=== PATIENT | female | born 1975 | race Caucasian/White ===

== ENCOUNTER 2021-01-06 06:36 | Inpatient (IN) | payer BC ==
[2021-01-06] MEDS ORDERED: cefOXitin 2 GM Vial ONE (06:39)
[2021-01-06] MEDS ORDERED: Dexamethasone 4 MG/ML SDV ONE (06:54)
[2021-01-06] MEDS ORDERED: Rocuronium 50 MG/5 ML Vial ONE (06:54)
[2021-01-06] MEDS ORDERED: Propofol 200 MG/20 ML SDV ONE (06:54)
[2021-01-06] MEDS ORDERED: Glycopyrrolate 0.2 MG/ML 5 ML MDV ONE (06:54)
[2021-01-06] MEDS ORDERED: Succinylcholine 200 MG/10 ML MDV ONE (06:54)
[2021-01-06] MEDS ORDERED: Neostigmine Methylsulfate 1 MG/ML 5 ML Syringe ONE (06:54)
[2021-01-06] MEDS ORDERED: fentaNYL 250 MCG/5 ML SDV ONE ×2 (06:54→08:05)
[2021-01-06] MEDS ORDERED: Ondansetron 4 MG/2 ML SDV ONE (06:54)
[2021-01-06] MEDS ORDERED: Celecoxib 200 MG Cap PO ONE (06:56)
[2021-01-06] MEDS ORDERED: Acetaminophen 500 MG Tab PO ONE (06:56)
[2021-01-06] MEDS ORDERED: Scopolamine 1.5 MG Transdermal Patch TOP SCH (07:00)
[2021-01-06] MEDS ORDERED: Dextrose 5%-Lactated Ringers 1,000 ML IV SCH ×2 (07:30→12:15)
[2021-01-06] MEDS ORDERED: Magnesium Sulfate 4.3 GM in Sodium Chloride 0.9% 250 ML IV ONE (07:45)
[2021-01-06] MEDS ORDERED: Ketamine 500 MG/5 ML MDV IV SCH (07:45)
[2021-01-06] MEDS ORDERED: Ketamine 19 MG in Sodium Chloride 0.9% 19.81 ML IV SCH (07:45)
[2021-01-06] MEDS ORDERED: cefOXitin 2 GM in Sodium Chloride 0.9% 50 ML IV ONE (08:00)
[2021-01-06] MEDS ORDERED: Lactated Ringers 1,000 ML ONE (08:25)
[2021-01-06] MEDS ORDERED: diphenhydrAMINE 50 MG/ML SDV ONE (08:25)
[2021-01-06] MEDS ORDERED: fentaNYL 100 MCG/2 ML SDV ONE (08:47)
[2021-01-06] MEDS ORDERED: hydrOXYzine HCL 100 MG/2 ML SDV IM ONE (10:09)
[2021-01-06] MEDS ORDERED: Cyclobenzaprine 10 MG Tab PO PRN (11:46)
[2021-01-06] MEDS ORDERED: Labetalol 20 MG/4 ML Syringe IVPUSH PRN (12:00)
[2021-01-06] MEDS ORDERED: Acetaminophen 500 MG Tab PO PRN (12:00)
[2021-01-06] MEDS ORDERED: HYDROmorphone 1 MG/ML Syringe IV PRN (12:00)
[2021-01-06] MEDS ORDERED: diphenhydrAMINE 50 MG/ML SDV IVPUSH PRN (12:00)
[2021-01-06] MEDS ORDERED: Calcium Gluconate 10% 1 GM/10 ML SDV IVPUSH PRN (12:00)
[2021-01-06] MEDS ORDERED: Metoclopramide 10 MG/2 ML SDV IVPUSH PRN (12:00)
[2021-01-06] MEDS ORDERED: HYDROmorphone 0.5 MG/0.5 ML Syringe IVPUSH PRN (12:00)
[2021-01-06] MEDS ORDERED: Ondansetron 4 MG/2 ML SDV IVPUSH PRN (12:00)
[2021-01-06] MEDS ORDERED: Fluticasone Propionate Nasal Spray 16 GM Bottle NAS PRN (12:18)
[2021-01-06] MEDS: traMADol 50 MG Tab PO PRN ×2 (13:01→19:04)
[2021-01-06] MEDS ORDERED: Pantoprazole 40 MG Vial IVPUSH SCH (14:00)
[2021-01-06] MEDS: cefOXitin 2 GM in Sodium Chloride 0.9% 50 ML IV SCH ×2 (14:28→20:36)
[2021-01-06] MEDS: Acetaminophen 500 MG Tab PO SCH ×2 (14:38→21:37)
[2021-01-06] MEDS ORDERED: MVI, Adult with Vitamin K 10 ML, Thiamine 200 MG, Zinc/Copper/Manganese/Selenium 1 ML i... IV SCH ×4 (16:00)
[2021-01-06] MEDS: Heparin Sodium 5,000 Units/ML Vial SUBCUT SCH (17:20)
[2021-01-06] MEDS: Dextrose 5%-Lactated Ringers 1,000 ML IV SCH (20:37)
[2021-01-06] MEDS: Azelastine Nasal Soln 30 ML Spray Bottle NAS SCH (21:35)
[2021-01-07] MEDS: cefOXitin 2 GM in Sodium Chloride 0.9% 50 ML IV SCH ×3 (01:52→13:18)
[2021-01-07] MEDS: Dextrose 5%-Lactated Ringers 1,000 ML IV SCH (03:10)
[2021-01-07] MEDS ORDERED: Iopamidol 612 MG/ML 50 ML SDV PO STA (03:27)
[2021-01-07] MEDS: Heparin Sodium 5,000 Units/ML Vial SUBCUT SCH ×2 (05:34→19:06)
[2021-01-07] MEDS: Acetaminophen 500 MG Tab PO SCH (05:34)
[2021-01-07] MEDS ORDERED: Dextrose 5%-Lactated Ringers 1,000 ML IV SCH (08:45)
[2021-01-07] MEDS: traMADol 50 MG Tab PO PRN ×2 (08:46→19:20)
[2021-01-07] MEDS: Azelastine Nasal Soln 30 ML Spray Bottle NAS SCH ×2 (08:48→21:23)
[2021-01-07] MEDS: Celecoxib 200 MG Cap PO SCH ×2 (08:48→21:22)
[2021-01-07] MEDS: SCOPOLAMINE PATCH CHECK TOP SCH (08:50)
[2021-01-07] MEDS: Acetaminophen Soln 650 MG/20.3 ML UD Cup PO SCH ×2 (13:10→21:22)
[2021-01-07] MEDS ORDERED: MVI, Adult with Vitamin K 10 ML, Thiamine 200 MG, Zinc/Copper/Manganese/Selenium 1 ML i... IV SCH ×4 (16:00)
[2021-01-07] MEDS: Pantoprazole 40 MG Delayed-Release Granules 1 Packet PO SCH (16:40)
--- NOTE | 2021-01-07 22:40 | PN ---
DATE OF SERVICE: 01/07/2021 The patient has been afebrile with stable vital signs. No major problems were noted overnight. Oral intake has been fairly good and upper GI x-ray looks good. Pain control has been good with Tylenol and Celebrex. Requiring 1 dose of Ultram on day shift yesterday but none thereafter. She does not like the taste of the Tylenol. We will try liquid Tylenol today. Otherwise, we will go up to a step-2 diet. Maximize activity. Work with pulmonary toilet. She may be ready for discharge home tomorrow. Tera Johnson MD Job #: [id number]
[2021-01-08] MEDS: traMADol 50 MG Tab PO PRN (03:11)
[2021-01-08] MEDS: hydrOXYzine HCL 100 MG/2 ML SDV IM PRN ×2 (03:53→08:28)
[2021-01-08] MEDS: Acetaminophen Soln 650 MG/20.3 ML UD Cup PO SCH ×3 (06:09→22:50)
[2021-01-08] MEDS: Heparin Sodium 5,000 Units/ML Vial SUBCUT SCH ×2 (06:09→18:24)
[2021-01-08] MEDS: Celecoxib 200 MG Cap PO SCH ×2 (08:28→22:50)
[2021-01-08] MEDS ORDERED: Cyanocobalamin (Vitamin B12) 1,000 MCG/ML SDV IM ONE (09:00)
[2021-01-08] MEDS: Azelastine Nasal Soln 30 ML Spray Bottle NAS SCH ×2 (10:30→22:50)
[2021-01-08] MEDS: SCOPOLAMINE PATCH CHECK TOP SCH (10:30)
--- NOTE | 2021-01-08 10:37 | OR ---
DATE OF PROCEDURE: 01/06/2021 SURGEON: Tera Johnson MD PREOPERATIVE DIAGNOSIS: Morbid obesity. POSTOPERATIVE DIAGNOSES: 1. Morbid obesity. 2. Marked hepatomegaly. 3. Paraesophageal diaphragmatic hernia. PROCEDURES PERFORMED: 1. Laparoscopic Lizeth-en-Y gastric bypass with long limb gastroenterostomy (91049). 2. Adriano-Cut needle liver biopsy (32153). 3. Repair of paraesophageal diaphragmatic hernia (96831). ANESTHESIA: General. CUSTOMS HOUSE BROKER: Dixie Landa PA-C INDICATIONS FOR PROCEDURE: This is a 45-year-old female presenting with longstanding morbid obesity and increasingly significant comorbidities. After preoperative evaluation and discussion, she wished to proceed with a gastric bypass procedure. Potential risks of the procedure including bleeding, infection, leaks from various GI tract closures, problems with bowel obstruction over time, as well as the possibility of cardiopulmonary, septic, or hemorrhagic complications leading to were discussed, and the patient wishes to proceed. DESCRIPTION OF PROCEDURE: The patient was taken to the operating room. After general endotracheal anesthesia was induced, she was placed in a lithotomy position and the abdomen prepped and draped. 15 cm inferior and 5 cm left of the xiphoid process, a transverse incision was made and the peritoneal cavity entered under direct vision with an Optiview trocar and inflated to 15 mmHg pressure with CO2. Laparoscope was then reinserted. No underlying trocar insertion site injuries were seen. Following this, 5 additional trocars were placed across the upper mid abdomen. Bilateral transversus abdominis plane blocks were placed. The liver was noted to be markedly enlarged and fatty infiltrated. Adriano-Cut needle biopsy obtained from the left lobe of the liver. Minimal bleeding from the biopsy site was controlled with electrocautery. At this point, the omentum was divided in the midline up to the level of the transverse colon. This allowed identification of the small bowel to the ligament of Treitz. The small bowel was then traced out 125 cm distal to that point and was divided transversely with a FLORINA stapler. The small bowel was then traced out an additional 150 cm where the side-to- side enteroenterostomy was accomplished with internal firing of the Endo-FLORINA 60 mm stapler. Common opening was then closed transversely with the same stapler and angles anastomosed and mesenteric defect approximated with some 0 Vicryl stitch reinforced with fibrin sealant. The Lizeth limb at that point had been brought up through an antecolic approach up to the level of the gastroesophageal junction without tension. With the liver being retracted anteriorly, the patient was noted to have moderate paraesophageal diaphragmatic hernia with prolapse of some perigastric fat and gastric fundus. After this was reduced, the peritoneum overlying it was incised and reflected downward and the diaphragmatic hernia repaired with 0 Ethibond sutures reinforced with PTFE pledgets. At this point, the gastrointestinal catheter was inflated to 15 mL and pulled up snugly against the EG junction. Gastric wall over the apex of the balloon was then marked with electrocautery and balloon catheter deflated and pulled up into the esophagus. The lesser omental tissue adjacent to the gastric cardia was then incised, allowing dissection behind the stomach at that level. Pouch formation was initiated with transverse firing of the FLORINA stapler at the cauterized af[place] of the gastric cardia and then completed with 2 additional firings of the FLORINA stapler up to and through the angle of His. Upon completion of the pouch, both staple lines appeared to be intact. The anvil of a 25 mm EEA stapler was attached to a Alcorn sump type tube. The latter was brought down through the mouth and taken out through a small opening in the gastric pouch, allowing the anvil likewise to be pulled down to within the gastric pouch. The divided end of the Lizeth limb was then opened and the main body of the EEA stapler was passed several centimeters into the lumen of the small bowel, brought up the anvil, and united with it, thus creating the gastrojejunostomy. Upon removal of the stapler, double donuts of mucosa were noted within it. The small bowel was closed off with a vascular staple line. Gastrojejunostomy was reinforced with some 3-0 Vicryl seromuscular stitch along with fibrin sealant. An omental patch over the left lateral and inferior aspects was then placed with a 3-0 Vicryl stitch. A leak test was accomplished with injection of 120 mL of air in the gastric pouch while it was submerged with cefoxitin-containing saline solution. No leaks were identified. A single Festus-Herrera drain was taken out through the left lateral trocar site and positioned adjacent to the gastrojejunostomy, and from there, up into the splenic fossa. At that point, no further problems were noted. The trocars were removed and the peritoneal cavity deflated. The incisions were closed with 4-0 Vicryl skin stitch and the drain affixed with 4-0 Vicryl stitch as well, and the patient was taken to the recovery room in satisfactory condition. Physician process assistant, Dixie Landa, played an essential role in assisting in this case, helping to position the patient, retract structures as needed, as well as suturing and cutting sutures when indicated. Her presence improved the patient's safety and decreased the operative time. Tera Johnson MD Job #: [id number]
--- NOTE | 2021-01-08 12:13 | DISCH ---
FINAL DIAGNOSES: 1. Morbid obesity. 2. Marked hepatomegaly. 3. Paraesophageal diaphragmatic hernia. SECONDARY DIAGNOSES: 1. History of alopecia. 2. History of pelvic inflammatory disease. 3. Status post hysterectomy. 4. Status post laparoscopic cholecystectomy. 5. Status post appendectomy. OPERATIVE PROCEDURES: On 01/06, diagnostic laparoscopy with: 1. Laparoscopic Lizeth-en-Y gastric bypass with long limb gastroenterostomy. 2. Adriano-Cut needle liver biopsy. 3. Repair of paraesophageal diaphragmatic hernia. SUMMARY: This is a 45-year-old female presenting with longstanding morbid obesity and increasingly significant comorbidities. After preoperative evaluation and discussion, she wished to proceed with a gastric bypass procedure. This was done along with liver biopsy and repair of diaphragmatic hernia at the time of the procedure. Postoperatively, she has had no major problems. She was noted to have some discomfort at the PEDRO PABLO drain site, which I think we will remove later this morning. The plan would be to do discharge home with followup with Dixie Landa on 01/16/2021. MEDICATIONS ON DISCHARGE: Will include her usual medications other than we will hold the omeprazole, and she will be given a recommendation for Tylenol 1 g q.6 hours p.r.n. and prescription for Ultram 50 mg q.6 hours p.r.n. pain, #18. Job #: [id number]
[2021-01-08] MEDS: Pantoprazole 40 MG Delayed-Release Granules 1 Packet PO SCH (18:23)
[2021-01-09] MEDS: traMADol 50 MG Tab PO PRN (02:18)
[2021-01-09] MEDS: Acetaminophen Soln 650 MG/20.3 ML UD Cup PO SCH (05:51)
[2021-01-09] MEDS: Heparin Sodium 5,000 Units/ML Vial SUBCUT SCH (05:51)
[2021-01-09] MEDS: Celecoxib 200 MG Cap PO SCH (09:05)
[2021-01-09] MEDS: Azelastine Nasal Soln 30 ML Spray Bottle NAS SCH (09:05)
--- NOTE | 2021-01-09 09:19 | CR ---
UGI Limited HISTORY: Postbariatric surgery FINDINGS: Patient swallowed water-soluble contrast. Upright views of the abdomen show no evidence of extravasation or obstruction. There is a surgical drain in the left upper quadrant. IMPRESSION: Status post bariatric surgery No extravasation or obstruction seen
--- NOTE | 2021-01-09 10:13 | CR ---
CHEST: 2 view CLINICAL HISTORY:Hypoxia, fever COMPARISON:None FINDINGS: Patient has diffuse bilateral pulmonary infiltrates. There may be a small left effusion. Heart size and pulmonary vascularity are normal Impression: Moderate bilateral predominantly lower lobe pneumonic infiltrates.
--- NOTE | 2021-01-09 14:04 | DISCH ---
ADDENDUM: Talya Mckay is 45-year-old female who was discharged to home yesterday morning, but developed a temperature of 100.7. She was treated with some Tylenol, and her oximetry, the lowest it got was 77% on 01/08/2021 at 2015. She remained afebrile since that time and vital signs did remain stable. O2 by pulse oximetry was 94% and 89% on 2 L. She was stable to be discharged to home today. Oral intake 1020. Urine output 1800. Pain managed by Ultram. REVIEW OF SYSTEMS: Remainder of review of systems negative for any pertinent positives and negatives. OBJECTIVE: GENERAL: Talya Mckay is a pleasant 45-year-old female. VITAL SIGNS: Height is 5 feet 8 inches, weight is 287 pounds, BMI 43.6. TPR 97.2, 98, 16, blood pressure 118/73. HEENT: Negative. NECK: Supple. HEART: Regular rate and rhythm. LUNGS: Revealed decreased breath sounds on respirations, but when asked to take a more conscious deep breath, her lungs have good air exchange in bases. She has been using her incentive spirometer and encouraged to continue using that. ABDOMEN: Negative. Sutures intact. Abdominal binder is on. Incisions are healing well. See discharge summary written on 01/08/2021. /[id number]
== END 2021-01-09 10:50 | disposition home or self-care (01) | DRG 403 ==
LOC: JP.SDS 06:36 → JP.SDSSCHI 08:32 → EDSTATUS 09:15 → JP.ICU 11:33 → JP.MS 01-07 20:16
PROVIDERS: ADMIT Surgery; ATTEND Surgery
PROC: 0D164ZA Bypass Stomach to Jejunum, Percutaneous Endoscopic Approach (ICD-10-PCS; principal; 2021-01-06)
PROC: 0FB24ZX Excision of Left Lobe Liver, Percutaneous Endoscopic Approach, Diagnostic (ICD-10-PCS; 2021-01-06)
PROC: 0BQT4ZZ Repair Diaphragm, Percutaneous Endoscopic Approach (ICD-10-PCS; 2021-01-06)
DX: E66.01 Morbid (severe) obesity due to excess calories (principal); R16.0 Hepatomegaly, not elsewhere classified; K44.9 Diaphragmatic hernia without obstruction or gangrene; Z90.710 Acquired absence of both cervix and uterus; Z90.49 Acquired absence of other specified parts of digestive tract; Z79.899 Other long term (current) drug therapy; Z68.41 Body mass index [BMI] 40.0-44.9, adult
CPT/HCPCS: 36415; 71046; 71046-26; 74240; 74240-26; 83036; 83735; 86850; 86900; 86901; 94762; A9270-GY; C9113; J0171; J0330; J0694; J1100; J1200; J1644; J2405; J2704; J2710; J2795; J3010; J3410; J3411; J3420; J3475; J3490; J7030; J7050; J7120; J7121

== ENCOUNTER 2021-01-11 10:32 | Inpatient (IN) | payer BC ==
[2021-01-11 12:30] LABS: CORONAVIRUS COVID-19 NAA POSITIVE (NEGATIVE)
[2021-01-11] MEDS ORDERED: REMDESIVIR 200 MG in Sodium Chloride 0.9% 250 ML IV ONE (12:45)
[2021-01-11] MEDS ORDERED: Acetaminophen 325 MG Tab PO PRN ×2 (12:45→16:00)
[2021-01-11] MEDS ORDERED: Dexamethasone 4 MG/ML SDV IVPUSH SCH (12:45)
[2021-01-11] MEDS ORDERED: Benzonatate 100 MG Cap PO ONE (12:46)
[2021-01-11] MEDS ORDERED: Enoxaparin 40 MG/0.4 ML Syringe SUBCUT ONE (12:52)
--- NOTE | 2021-01-11 12:56 | EDM.PDOC ---
ED HPI GENERAL MEDICAL PROBLEM - General Chief Complaint: Respiratory Problem Stated Complaint: COUGH,NAUSEA,SOB/RNY LAST VERNA Time Seen by Provider: 01/11/21 12:32 Source of Information: Reports: Patient, RN Notes Reviewed History Limitations: Reports: No Limitations - History of Present Illness INITIAL COMMENTS - FREE TEXT/NARRATIVE: 45-year-old female presents the emergency department day complaint of increasing shortness of breath, she is postop day 6 from gastric bypass surgery she states about 3 days ago she started having difficulty breathing felt more short of carmita ath has had low-grade fevers at home. - Related Data Allergies Allergy/AdvReac Type Severity Reaction Status Date / Time penicillin G Allergy Unknown Hives Verified 01/11/21 11:40 fentanyl Allergy Hives Verified 01/11/21 11:40 oxycodone [From Percocet] Allergy Itching Verified 01/11/21 11:40 Home Meds: Home Meds Azelastine [Astelin Nasal Soln] 1 spray BENNY BID 01/04/21 [History] Fluticasone Propionate [Flonase] 1 - 2 spray BENNY DAILY PRN 01/04/21 [History] Calcium Carb, Citrate/Vit D3 [Citracal + D ER] 1 tab PO DAILY #0 01/08/21 [Rx] Celecoxib [CeleBREX] 1 cap PO BID #0 01/08/21 [Rx] Cyanocobalamin (Vitamin B-12) [Vitamin B-12] 1,000 mcg SL DAILY #0 01/08/21 [Rx] Doxycycline Hyclate 100 mg PO DAILY PRN #0 01/08/21 [Rx] Ferrous Fumarate/Vitamin C [Vitron-C] 1 tab PO DAILY #0 01/08/21 [Rx] Magnesium Hydroxide [Milk of Magnesia] 30 ml PO DAILY PRN #2 ml 01/08/21 [Rx] Multivitamin [Multi-Day Vitamins] 1 tab PO DAILY #0 01/08/21 [Rx] Vitamin B Complex [B Complex] 1 tab PO DAILY #0 01/08/21 [Rx] traMADol [Ultram] 50 mg PO Q6H PRN #18 tablet 01/08/21 [Rx] Acetaminophen [Tylenol] 1,000 mg PO Q6H PRN 01/11/21 [History] Past Medical History HEENT History: Reports: Allergic Rhinitis Gastrointestinal History: Reports: GERD, Hiatal Hernia HOUSEKEEPING ATTENDANT History: Reports: Polycystic Ovaries, Musculoskeletal History: Reports: Fracture, Other (See Below) Other Musculoskeletal History: fractured arm, ankle, wrist Endocrine/Metabolic History: Reports: Obesity/BMI 30+ Dermatologic History: Reports: Other (See Below) Other Dermatologic History: rosacea - Infectious Disease History Infectious Disease History: Reports: Chicken Pox, Measles, Mumps - Past Surgical History Head Surgeries/Procedures: Reports: None HEENT Surgical History: Reports: Adenoidectomy, Tonsillectomy GI Surgical History: Reports: Appendectomy, Bariatric Procedure, Cholecystectomy, EGD Female Surgical History: Reports: Hysterectomy Endocrine Surgical History: Reports: None Musculoskeletal Surgical History: Reports: None Dermatological Surgical History: Reports: None Social & Family History - Tobacco Use Tobacco Use Status *Q: Never Tobacco User Second Hand Smoke Exposure: No - Caffeine Use Caffeine Use: Reports: None, Soda - Recreational Drug Use Recreational Drug Use: No ED ROS GENERAL - Review of Systems Review Of Systems: See Below Constitutional: Reports: Fever, Weakness, Fatigue HEENT: Reports: No Symptoms Respiratory: Reports: Shortness of Breath, Cough Cardiovascular: Reports: Dyspnea on Exertion GI/Abdominal: Reports: No Symptoms ED EXAM, GENERAL - Physical Exam Exam: See Below Exam Limited By: No Limitations General Appearance: Alert, WD/WN, No Apparent Distress Respiratory/Chest: No Respiratory Distress, Lungs Clear, Normal Breath Sounds, No Accessory Muscle Use, Chest Non-Tender Cardiovascular: No Murmur, Tachycardia Course - Vital Signs Last Recorded V/S: Last Vital Signs Temp 98.2 F 01/11/21 11:42 Pulse 112 H 01/11/21 11:42 Resp 40 H 01/11/21 11:42 BP 117/81 01/11/21 11:42 Pulse Ox 92 L 01/11/21 11:42 - Orders/Labs/Meds Orders: Active Orders 24 hr Category Date Time Status Chest 1V Frontal [CR] Stat Exams 01/11/21 12:46 Ordered HEPATIC FUNCTION PANEL,HFP [CHEM] DAILY Lab 01/12/21 13:00 Ordered HEPATIC FUNCTION PANEL,HFP [CHEM] DAILY Lab 01/13/21 13:00 Ordered HEPATIC FUNCTION PANEL,HFP [CHEM] DAILY Lab 01/14/21 13:00 Ordered HEPATIC FUNCTION PANEL,HFP [CHEM] DAILY Lab 01/15/21 13:00 Ordered PROCALCITONIN [CHEM] Stat Lab 01/11/21 13:10 Received Acetaminophen [TylenoL] Med 01/11/21 12:45 Active 650 mg PO Q4H PRN dexAMETHasone [Decadron] Med 01/11/21 12:45 Active 6 mg IVPUSH DAILY Isolation [COMM] Stat Oth 01/11/21 12:45 Ordered Medication Orders Acetaminophen (Acetaminophen 325 Mg Tab) 650 mg PO Q4H PRN PRN Reason: Fever Greater Than 101 Last Admin: 01/11/21 13:53 Dose: 650 mg Documented by: JOSTIN Dexamethasone (Dexamethasone 4 Mg/Ml Sdv) 6 mg IVPUSH DAILY OMAYRA Stop: 01/20/21 09:01 Last Admin: 01/11/21 13:58 Dose: 6 mg Documented by: JOSTIN Labs: Laboratory Tests 01/11/21 01/11/21 01/11/21 Range/Units 11:36 12:45 13:10 WBC 5.1 (4.5-11.0) K/uL RBC 4.85 (3.30-5.50) M/uL Hgb 13.7 (12.0-15.0) g/dL Hct 41.6 (36.0-48.0) % MCV 86 (80-98) fL MCH 28 (27-31) pg MCHC 33 (32-36) % Plt Count 230 (150-400) K/uL Neut % (Auto) 77.1 H (36-66) % Lymph % (Auto) 18.9 L (24-44) % Citrus % (Auto) 3.4 (2-6) % Eos % (Auto) 0.0 L (2-4) % Baso % (Auto) 0.6 (0-1) % D-Dimer, Quantitative (0.0-500.0) ng/mL Sodium (140-148) mmol/L Potassium (3.6-5.2) mmol/L Chloride (100-108) mmol/L Carbon Dioxide (21-32) mmol/L Anion Gap (5.0-14.0) mmol/L BUN (7-18) mg/dL Creatinine (0.6-1.0) mg/dL Est Cr Clr Drug Dosing mL/min Estimated GFR (MDRD) (>60) Glucose (74-106) mg/dL Lactic Acid 1.6 (0.4-2.0) mmol/L Calcium (8.5-10.1) mg/dL Total Bilirubin (0.2-1.0) mg/dL Direct Bilirubin (0.0-0.2) mg/dL Indirect Bilirubin AST (15-37) U/L ALT (12-78) U/L Alkaline Phosphatase (46-116) U/L C-Reactive Protein (0.0-0.3) mg/dL Total Protein (6.4-8.2) g/dL Albumin (3.4-5.0) g/dL Globulin (2.3-3.5) g/dL Albumin/Globulin Ratio (1.2-2.2) Influenza Type A RNA Negative (NEGATIVE) RSV RNA (INAAT) Negative (NEGATIVE) Influenza Type B RNA Negative (NEGATIVE) SARS-CoV-2 RNA (JONAH) Positive H (NEGATIVE) 01/11/21 01/11/21 Range/Units 13:10 13:10 WBC (4.5-11.0) K/uL RBC (3.30-5.50) M/uL Hgb (12.0-15.0) g/dL Hct (36.0-48.0) % MCV (80-98) fL MCH (27-31) pg MCHC (32-36) % Plt Count (150-400) K/uL Neut % (Auto) (36-66) % Lymph % (Auto) (24-44) % Citrus % (Auto) (2-6) % Eos % (Auto) (2-4) % Baso % (Auto) (0-1) % D-Dimer, Quantitative 1767.43 H (0.0-500.0) ng/mL Sodium 134 L (140-148) mmol/L Potassium 4.0 (3.6-5.2) mmol/L Chloride 97 L (100-108) mmol/L Carbon Dioxide 26 (21-32) mmol/L Anion Gap 15.0 H (5.0-14.0) mmol/L BUN 9 (7-18) mg/dL Creatinine 0.8 (0.6-1.0) mg/dL Est Cr Clr Drug Dosing 91.47 mL/min Estimated GFR (MDRD) > 60 (>60) Glucose 94 (74-106) mg/dL Lactic Acid (0.4-2.0) mmol/L Calcium 8.2 L (8.5-10.1) mg/dL Total Bilirubin 0.3 (0.2-1.0) mg/dL Direct Bilirubin 0.16 (0.0-0.2) mg/dL Indirect Bilirubin 0.14 AST 63 H (15-37) U/L ALT 41 (12-78) U/L Alkaline Phosphatase 107 (46-116) U/L C-Reactive Protein 27.88 H (0.0-0.3) mg/dL Total Protein 6.7 (6.4-8.2) g/dL Albumin 2.6 L (3.4-5.0) g/dL Globulin 4.1 H (2.3-3.5) g/dL Albumin/Globulin Ratio 0.6 L (1.2-2.2) Influenza Type A RNA (NEGATIVE) RSV RNA (INAAT) (NEGATIVE) Influenza Type B RNA (NEGATIVE) SARS-CoV-2 RNA (JONAH) (NEGATIVE) Meds: Medications Generic Name Dose Route Start Last Admin Trade Name Freq PRN Reason Stop Dose Admin Acetaminophen 650 mg 01/11/21 12:45 01/11/21 13:53 Acetaminophen 325 Mg Tab PO 650 mg Q4H PRN Administration Fever Greater Than 101 Dexamethasone 6 mg 01/11/21 12:45 01/11/21 13:58 Dexamethasone 4 Mg/Ml Sdv IVPUSH 01/20/21 09:01 6 mg DAILY OMAYRA Administration Discontinued Medications Generic Name Dose Route Start Last Admin Trade Name Freq PRN Reason Stop Dose Admin Benzonatate 200 mg 01/11/21 12:46 01/11/21 13:53 Benzonatate 100 Mg Cap PO 01/11/21 12:47 200 mg ONETIME ONE Administration Enoxaparin Sodium 40 mg 01/11/21 12:52 01/11/21 14:32 Enoxaparin 40 Mg/0.4 Ml Syringe SUBCUT 01/11/21 12:53 40 mg ONETIME ONE Administration Remdesivir 200 mg/ Sodium 250 mls @ 250 mls/hr 01/11/21 12:45 01/11/21 14:29 Chloride IV 01/11/21 12:46 250 mls/hr ONETIME ONE Administration Departure - Departure Time of Disposition: 14:36 Disposition: Admitted As Inpatient 68 Condition: Fair Clinical Impression: COVID-19, COVID-19 - Discharge Information Referrals: Tera Johnson MD [Primary Care Provider] - Forms: ED Department Discharge Sepsis Event Note (ED) - Evaluation Sepsis Screening Result: Possible Sepsis Risk - Focused Exam Vital Signs: Vital Signs Temp Pulse Resp BP Pulse Ox 01/11/21 11:42 98.2 F 112 H 40 H 117/81 92 L 01/11/21 11:36 92 L 01/11/21 11:34 98.2 F 112 H 40 H 117/81 80 L - My Orders Last 24 Hours: My Active Orders 01/11/21 12:45 Acetaminophen [TylenoL] 650 mg PO Q4H PRN dexAMETHasone [Decadron] 6 mg IVPUSH DAILY Isolation [COMM] Stat 01/11/21 12:46 Chest 1V Frontal [CR] Stat 01/11/21 13:10 PROCALCITONIN [CHEM] Stat 01/12/21 13:00 HEPATIC FUNCTION PANEL,HFP [CHEM] DAILY 01/13/21 13:00 HEPATIC FUNCTION PANEL,HFP [CHEM] DAILY 01/14/21 13:00 HEPATIC FUNCTION PANEL,HFP [CHEM] DAILY 01/15/21 13:00 HEPATIC FUNCTION PANEL,HFP [CHEM] DAILY - Assessment/Plan Last 24 Hours: My Active Orders 01/11/21 12:45 Acetaminophen [TylenoL] 650 mg PO Q4H PRN dexAMETHasone [Decadron] 6 mg IVPUSH DAILY Isolation [COMM] Stat 01/11/21 12:46 Chest 1V Frontal [CR] Stat 01/11/21 13:10 PROCALCITONIN [CHEM] Stat 01/12/21 13:00 HEPATIC FUNCTION PANEL,HFP [CHEM] DAILY 01/13/21 13:00 HEPATIC FUNCTION PANEL,HFP [CHEM] DAILY 01/14/21 13:00 HEPATIC FUNCTION PANEL,HFP [CHEM] DAILY 01/15/21 13:00 HEPATIC FUNCTION PANEL,HFP [CHEM] DAILY Plan: Assessment Acuity = acute Site and laterality = viral syndrome complicated patient who is postop day 6 Etiology = COVID-19 Manifestations = hypoxic Location of injury = Home Lab values = CBC unremarkable D-dimer elevated 1767 of unclear significance lactic acid normal 1.6 AST elevated 63 CRP elevated 27.8 Covid was positive influenza AMB negative RSV negative chest x-ray pending procalcitonin pending Plan Call discussed case hospitalist on-call at 1430 currently agreed to come evaluate the patient emergency department for admission, Lovenox, Ribavarin dexamethasone initiated in the emergency department This note was dictated using [employer] voice recognition software please call with any questions on syntax or grammar.
--- NOTE | 2021-01-11 15:15 | PCM.HP.2 ---
H&P History of Present Illness - General Date of Service: 01/11/21 Admit Problem/Dx: Admission Diagnosis/Problem Admission Diagnosis/Problem Pneumonia Source of Information: Patient, Provider History Limitations: Reports: No Limitations - History of Present Illness Initial Comments - Free Text/Narative: CC: I was so short of breath HPI: Talya presented to the emergency room today with progressive dyspnea. She reports having gastric bypass surgery on Saturday, 5 days ago. She had mild hypoxia noted during the hospital stay and mild dyspnea but felt decent at the time of discharge 2 days ago. Since that time she has developed sinus congestion, cough which is dry as well as progressive dyspnea. She was quite short of breath today prompting her to come to the emergency room for evaluation. She is not aware of any fevers or chills. No loss of taste or smell. No nausea or diarrhea. Her abdominal pain from surgery has been fairly well controlled. She is not aware of any definite sick contacts. Nobody else at home is sick. She is feeling better now that she has been started on supplemental oxygen. Work-up in the emergency room revealed elevated D-dimer, significantly elevated CRP as well as Covid positive. She has hypoxic and requiring supplemental ox ygen. She has received dexamethasone, remdesivir and enoxaparin. She will be admitted for further management. Generalized Pain Score (Numeric/FACES): 0 - Related Data Allergies/Adverse Reactions: Allergies Allergy/AdvReac Type Severity Reaction Status Date / Time penicillin G Allergy Unknown Hives Verified 01/11/21 11:40 fentanyl Allergy Hives Verified 01/11/21 11:40 oxycodone [From Percocet] Allergy Itching Verified 01/11/21 11:40 Home Medications: Home Meds Azelastine [Astelin Nasal Soln] 1 spray BENNY BID 01/04/21 [History] Fluticasone Propionate [Flonase] 1 - 2 spray BENNY DAILY PRN 01/04/21 [History] Calcium Carb, Citrate/Vit D3 [Citracal + D ER] 1 tab PO DAILY #0 01/08/21 [Rx] Celecoxib [CeleBREX] 1 cap PO BID #0 01/08/21 [Rx] Cyanocobalamin (Vitamin B-12) [Vitamin B-12] 1,000 mcg SL DAILY #0 01/08/21 [Rx] Doxycycline Hyclate 100 mg PO DAILY PRN #0 01/08/21 [Rx] Ferrous Fumarate/Vitamin C [Vitron-C] 1 tab PO DAILY #0 01/08/21 [Rx] Magnesium Hydroxide [Milk of Magnesia] 30 ml PO DAILY PRN #2 ml 01/08/21 [Rx] Multivitamin [Multi-Day Vitamins] 1 tab PO DAILY #0 01/08/21 [Rx] Vitamin B Complex [B Complex] 1 tab PO DAILY #0 01/08/21 [Rx] traMADol [Ultram] 50 mg PO Q6H PRN #18 tablet 01/08/21 [Rx] Acetaminophen [Tylenol] 1,000 mg PO Q6H PRN 01/11/21 [History] Past Medical History HEENT History: Reports: Allergic Rhinitis Gastrointestinal History: Reports: GERD, Hiatal Hernia Genitourinary History: Reports: None [employer] History: Reports: Polycystic Ovaries, Musculoskeletal History: Reports: Fracture, Other (See Below) Other Musculoskeletal History: fractured arm, ankle, wrist Endocrine/Metabolic History: Reports: Obesity/BMI 30+ Dermatologic History: Reports: Other (See Below) Other Dermatologic History: rosacea - Infectious Disease History Infectious Disease History: Reports: Chicken Pox, Measles, Mumps - Past Surgical History Head Surgeries/Procedures: Reports: None HEENT Surgical History: Reports: Adenoidectomy, Tonsillectomy GI Surgical History: Reports: Appendectomy, Bariatric Procedure, Cholecystectomy, EGD Female Surgical History: Reports: Hysterectomy Endocrine Surgical History: Reports: None Musculoskeletal Surgical History: Reports: None Dermatological Surgical History: Reports: None Social & Family History - Family History Cardiac: Denies: CAD - Tobacco Use Tobacco Use Status *Q: Never Tobacco User Second Hand Smoke Exposure: No - Caffeine Use Caffeine Use: Reports: None, Soda - Alcohol Use Alcohol Use History: No Alcohol Use in Last Twelve Months: No - Recreational Drug Use Recreational Drug Use: No H&P Review of Systems - Review of Systems: Review Of Systems: See Below Free Text/Narrative: A complete 12 point review of systems was obtained. Pertinent positives and negatives are noted in the history of present illness. All other systems were reviewed and were negative except as noted. Exam - Exam Exam: See Below - Vital Signs Vital Signs: Last Vital Signs Temp 36.8 C 01/11/21 11:42 Pulse 112 H 01/11/21 11:42 Resp 40 H 01/11/21 11:42 BP 117/81 01/11/21 11:42 Pulse Ox 92 L 01/11/21 11:42 Weight: 127.006 kg - Exam Quality Assessment: Supplemental Oxygen General: Alert, Oriented, Cooperative, Mild Distress HEENT: Conjunctiva Clear. No: Mucosa Moist & Effie (dry), Scleral Icterus Neck: Supple, Trachea Midline, JVD Lungs: Clear to Auscultation, Crackles (Moderate both lower lungs and mild right and left middle lung area) Cardiovascular: Regular Rate, Regular Rhythm. No: Systolic Murmur GI/Abdominal Exam: Normal Bowel Sounds, Soft, No Distention Extremities: No Pedal Edema. No: Increased Warmth Skin: Warm, Dry Neuro Extensive - Mental Status: Alert, Oriented x3, Nl Response to Commands Neuro Extensive - Motor, Sensory, Reflexes: No: Dysarthria, Abnormal Motor, Tremor Psychiatric: Alert, Normal Affect - Patient Data Lab Results Last 24 hrs: Laboratory Results - last 24 hr 01/11/21 01/11/21 01/11/21 Range/Units 11:36 12:45 13:10 WBC 5.1 (4.5-11.0) K/uL RBC 4.85 (3.30-5.50) M/uL Hgb 13.7 (12.0-15.0) g/dL Hct 41.6 (36.0-48.0) % MCV 86 (80-98) fL MCH 28 (27-31) pg MCHC 33 (32-36) % Plt Count 230 (150-400) K/uL Neut % (Auto) 77.1 H (36-66) % Lymph % (Auto) 18.9 L (24-44) % Wolfe % (Auto) 3.4 (2-6) % Eos % (Auto) 0.0 L (2-4) % Baso % (Auto) 0.6 (0-1) % D-Dimer, Quantitative (0.0-500.0) ng/mL Sodium (140-148) mmol/L Potassium (3.6-5.2) mmol/L Chloride (100-108) mmol/L Carbon Dioxide (21-32) mmol/L Anion Gap (5.0-14.0) mmol/L BUN (7-18) mg/dL Creatinine (0.6-1.0) mg/dL Est Cr Clr Drug Dosing mL/min Estimated GFR (MDRD) (>60) Glucose (74-106) mg/dL Lactic Acid 1.6 (0.4-2.0) mmol/L Calcium (8.5-10.1) mg/dL Total Bilirubin (0.2-1.0) mg/dL Direct Bilirubin (0.0-0.2) mg/dL Indirect Bilirubin AST (15-37) U/L ALT (12-78) U/L Alkaline Phosphatase (46-116) U/L C-Reactive Protein (0.0-0.3) mg/dL Total Protein (6.4-8.2) g/dL Albumin (3.4-5.0) g/dL Globulin (2.3-3.5) g/dL Albumin/Globulin Ratio (1.2-2.2) Procalcitonin ng/mL Influenza Type A RNA Negative (NEGATIVE) RSV RNA (INAAT) Negative (NEGATIVE) Influenza Type B RNA Negative (NEGATIVE) SARS-CoV-2 RNA (JONAH) Positive H (NEGATIVE) 01/11/21 01/11/21 01/11/21 Range/Units 13:10 13:10 13:10 WBC (4.5-11.0) K/uL RBC (3.30-5.50) M/uL Hgb (12.0-15.0) g/dL Hct (36.0-48.0) % MCV (80-98) fL MCH (27-31) pg MCHC (32-36) % Plt Count (150-400) K/uL Neut % (Auto) (36-66) % Lymph % (Auto) (24-44) % Wolfe % (Auto) (2-6) % Eos % (Auto) (2-4) % Baso % (Auto) (0-1) % D-Dimer, Quantitative 1767.43 H (0.0-500.0) ng/mL Sodium 134 L (140-148) mmol/L Potassium 4.0 (3.6-5.2) mmol/L Chloride 97 L (100-108) mmol/L Carbon Dioxide 26 (21-32) mmol/L Anion Gap 15.0 H (5.0-14.0) mmol/L BUN 9 (7-18) mg/dL Creatinine 0.8 (0.6-1.0) mg/dL Est Cr Clr Drug Dosing 91.47 mL/min Estimated GFR (MDRD) > 60 (>60) Glucose 94 (74-106) mg/dL Lactic Acid (0.4-2.0) mmol/L Calcium 8.2 L (8.5-10.1) mg/dL Total Bilirubin 0.3 (0.2-1.0) mg/dL Direct Bilirubin 0.16 (0.0-0.2) mg/dL Indirect Bilirubin 0.14 AST 63 H (15-37) U/L ALT 41 (12-78) U/L Alkaline Phosphatase 107 (46-116) U/L C-Reactive Protein 27.88 H (0.0-0.3) mg/dL Total Protein 6.7 (6.4-8.2) g/dL Albumin 2.6 L (3.4-5.0) g/dL Globulin 4.1 H (2.3-3.5) g/dL Albumin/Globulin Ratio 0.6 L (1.2-2.2) Procalcitonin 0.47 ng/mL Influenza Type A RNA (NEGATIVE) RSV RNA (INAAT) (NEGATIVE) Influenza Type B RNA (NEGATIVE) SARS-CoV-2 RNA (JONAH) (NEGATIVE) Result Diagrams: 01/11/21 13:10 01/11/21 13:10 Imaging Impressions Last 24 hrs: Chest x-ray-image personally reviewed-this showed bilateral lower lung patchy in filtrates as well as a probable small left pleural effusion. Heart size is normal. Sepsis Event Note - Evaluation Sepsis Screening Result: Possible Sepsis Risk - Focused Exam Vital Signs: Vital Signs Temp Pulse Resp BP Pulse Ox 01/11/21 11:42 36.8 C 112 H 40 H 117/81 92 L 01/11/21 11:36 92 L 01/11/21 11:34 36.8 C 112 H 40 H 117/81 80 L *Q Meaningful Use (ADM) - VTE Risk Assess *Q Each Risk Factor Represents 1 Point: Age 41 - 59 years, Obesity ( BMI > 25 kg/m2), Serious lung disease including pneumonia Total Score 1 Point Risk Factors: 3 Each Risk Factor Represents 2 Points: None Total Score 2 Point Risk Factors: 0 Each Risk Factor Represents 3 Points: None Total Score 3 Point Risk Factors: 0 Each Risk Factor Represents 5 Points: None Total Score 5 Point Risk Factors: 0 Venous Thromboembolism Risk Factor Score *Q: 3 - Problem List (1) COVID-19 SNOMED Code(s): 127072666 ICD Code: U07.1 - COVID-19 Status: Acute Current Visit: Yes (2) Acute respiratory failure due to COVID-19 SNOMED Code(s): 394002743 ICD Code: U07.1 - COVID-19; J96.00 - ACUTE RESPIRATORY FAILURE, UNSP W HYPOXIA OR HYPERCAPNIA Status: Acute Current Visit: Yes (3) Status post gastric bypass for obesity SNOMED Code(s): 201308601, 780155303, 697550364, 104868125 ICD Code: Z98.84 - BARIATRIC SURGERY STATUS Status: Chronic Current V isit: No (4) Morbid obesity with BMI of 40.0-44.9, adult SNOMED Code(s): 332505104, 65833896149584 ICD Code: E66.01 - MORBID (SEVERE) OBESITY DUE TO EXCESS CALORIES; Z68.41 - BODY MASS INDEX [BMI] 40.0-44.9, ADULT Status: Chronic Current Visit: No Problem List Initiated/Reviewed/Updated: Yes Orders Last 24hrs: Active Orders 24 hr Category Date Time Status Patient Status Manage Transfer [TRANSFER] Routine ADT 01/11/21 15:08 Ordered Chest 1V Frontal [CR] Stat Exams 01/11/21 12:46 Ordered HEPATIC FUNCTION PANEL,HFP [CHEM] DAILY Lab 01/12/21 13:00 Ordered HEPATIC FUNCTION PANEL,HFP [CHEM] DAILY Lab 01/13/21 13:00 Ordered HEPATIC FUNCTION PANEL,HFP [CHEM] DAILY Lab 01/14/21 13:00 Ordered HEPATIC FUNCTION PANEL,HFP [CHEM] DAILY Lab 01/15/21 13:00 Ordered Acetaminophen [TylenoL] Med 01/11/21 12:45 Active 650 mg PO Q4H PRN dexAMETHasone [Decadron] Med 01/11/21 12:45 Active 6 mg IVPUSH DAILY Isolation [COMM] Stat Oth 01/11/21 12:45 Ordered Resuscitation Status Routine Resus Stat 01/11/21 15:10 Ordered Medication Orders Acetaminophen (Acetaminophen 325 Mg Tab) 650 mg PO Q4H PRN PRN Reason: Fever Greater Than 101 Last Admin: 01/11/21 13:53 Dose: 650 mg Documented by: JOSTIN Dexamethasone (Dexamethasone 4 Mg/Ml Sdv) 6 mg IVPUSH DAILY OMAYRA Stop: 01/20/21 09:01 Last Admin: 01/11/21 13:58 Dose: 6 mg Documented by: JOSTIN Assessment/Plan Comment:: ASSESSMENT AND PLAN - COVID-19 pneumonia-complicated by acute respiratory failure with hypoxia. Symptom onset of 01/09 and positive test on 01/11. Manifestations include cough and dyspnea. She has hypoxic and requiring supplemental oxygen. Moderate elev ation of D-dimer and significant elevation of CRP (potentially some contribution from surgery here). Use of steroids and anticoagulants discussed with Dr. Johnson of the surgical team and felt that these would be safe to utilize. -Dexamethasone 6 mg daily (day 1) -Remdesivir x5 days -Enoxaparin every 24 hours -Repeat CRP and D-dimer every 2 to 3 days -Supplement oxygen, wean as able -Isolation precautions Morbid obesity with BMI greater than 40-status post bariatric surgery on 01/06. Pain well controlled. Seems to be moving okay and doing well from a surgical standpoint. -Symptomatic management of pain -Surgical follow-up per Dr. Johnson Maintenance issues - -DVT prophylaxis-enoxaparin -GI prophylaxis-not indicated -Nutrition-step 2 diet -Donahue catheter-not indicated CODE STATUS -full code Admission justification -this patient will be admitted for inpatient services and is medically appropriate meeting medical necessity for inpatient admission as outlined in my documentation. I reasonably expect the patient will require inpatient services that span a period time over 2 midnights. I reasonably expect this patient to be discharged or transferred within 96 hours [facility] Disposition -I anticipate discharge home after the hospital stay Amador Thornton M.D. - Mortality Measure Prognosis:: Good
--- NOTE | 2021-01-11 15:16 | CR ---
CHEST: Portable 01/11/2021 at 3:12 PM CLINICAL HISTORY:Respiratory failure COMPARISON:01/09/2021 FINDINGS: There are moderate diffuse bilateral pulmonary infiltrates which have increased when compared to 01/09/2021. There is blunting of left costophrenic angle which may be due to pleural fluid or basilar infiltrate. IMPRESSION: Moderate increase in bilateral pulmonary infiltrates
[2021-01-11] MEDS ORDERED: traMADol 50 MG Tab PO PRN (16:00)
[2021-01-11] MEDS ORDERED: guaiFENesin/Dextromethorphan 100-10 MG/5 ML Soln 10 ML Cup PO PRN (16:00)
[2021-01-11] MEDS ORDERED: Benzonatate 100 MG Cap PO PRN (16:00)
[2021-01-11] MEDS ORDERED: Magnesium Hydroxide 400 MG/5 ML Susp 30 ML Cup PO PRN (16:00)
[2021-01-11] MEDS ORDERED: Ondansetron 4 MG Tab.DIS PO PRN (16:00)
[2021-01-11] MEDS ORDERED: LORazepam 2 MG/ML SDV IVPUSH PRN (16:00)
[2021-01-11] MEDS ORDERED: Ondansetron 4 MG/2 ML SDV IV PRN (16:00)
[2021-01-11] MEDS ORDERED: Furosemide 20 MG/2 ML VIAL IVPUSH ONE (16:15)
[2021-01-11] MEDS ORDERED: Acetaminophen Soln 650 MG/20.3 ML UD Cup PO PRN (20:44)
--- NOTE | 2021-01-12 08:31 | HP ---
Talya was admitted yesterday for a chronic cough. She had called the clinic and was instructed to go to the emergency department and she was admitted with acute respiratory failure due to COVID-19. This morning, she reports that she still is short of breath, but she is not confused, falling asleep, or unable to concentrate like she was prior to admission. She is drinking protein drinks. She was discharged having a gastric bypass on 01/09/2021. REVIEW OF SYSTEMS: HEENT: Has a slight headache. NECK: Negative. Denies chest pain. Short of breath with cough. Sometimes the cough she states is shallow. Other times it is quite deep, mostly unproductive. Denies any abdominal pain, had a bowel movement, is not wearing a binder. States it makes it harder for her to breath. EXTREMITIES: Without peripheral edema. Denies any pain. SKIN: Denies rash. PSYCHIATRIC: Denies any depression or insomnia, and she states she has some anxiety, but it has improved. Remainder of review of systems negative for any pertinent positives and negatives. OBJECTIVE: Talya is a pleasant 45-year-old female. She is alert and orientated, sitting up in chair. TPR is , 18, and O2 is 93% on 6 L. HEENT: Negative. NECK: Supple. HEART: Regular rate and rhythm. LUNGS: Reveal rales bilaterally, right is more pronounced than left. ABDOMEN: Sutures are intact. Trocar incisions are healing well. EXTREMITIES: Without peripheral edema. ASSESSMENT: 1. COVID-19. 2. Acute respiratory failure due to COVID-19. 3. Status post Lizeth-en-Y gastric bypass surgery. 4. Date of procedure 01/06/2021. 5. Morbid obesity, body mass index 42.6. PLAN: Continue step 2 gastric bypass diet without cereal. Incentive spirometer to use every hour while awake. We will evaluate p.r.n. or in a.m. Dixie Landa PA-C /[id number]
[2021-01-12] MEDS: Azelastine Nasal Soln 30 ML Spray Bottle NAS SCH ×2 (08:32→20:40)
[2021-01-12] MEDS ORDERED: Multivitamins with Iron/Calcium/Folic Acid/Minerals Tab PO SCH (09:00)
[2021-01-12] MEDS ORDERED: Furosemide 20 MG/2 ML VIAL IVPUSH ONE (09:00)
[2021-01-12] MEDS ORDERED: Cyanocobalamin (Vitamin B12) 1,000 MCG Tab SL SCH (09:00)
[2021-01-12] MEDS ORDERED: Vitamin B Complex Tab PO SCH (09:00)
--- NOTE | 2021-01-12 14:03 | PCM.PN ---
- General Info Date of Service: 01/12/21 Subjective Update: No acute events overnight. Patient is on slightly more supplemental oxygen today than yesterday but otherwise feels about the same. Short of breath with activity but comfortable at rest. No significant abdominal pain from her surgical site. No fevers. She is able to get down decent quantities of fluids and protein supplements. She reports diffuse myalgias. No fevers or nausea. Functional Status: Reports: Pain Controlled, Tolerating Diet - Review of Systems General: Denies: Fever Pulmonary: Reports: Shortness of Breath Musculoskeletal: Reports: Other (myalgia ) - Patient Data Vitals - Most Recent: Last Vital Signs Temp 37.3 C 01/12/21 10:12 Pulse 89 01/12/21 10:12 Resp 18 01/12/21 10:12 BP 109/68 01/12/21 10:12 Pulse Ox 89 L 01/12/21 12:52 Weight - Most Recent: 127.006 kg I&O - Last 24 Hours: Intake & Output 01/11/21 01/12/21 01/12/21 22:59 06:59 14:59 Intake Total 360 60 Output Total 1500 900 300 Balance -1500 -540 -240 Lab Results Last 24 Hours: Laboratory Results - last 24 hr 01/11/21 01/11/21 01/11/21 Range/Units 12:45 13:10 13:10 WBC (4.5-11.0) K/uL RBC (3.30-5.50) M/uL Hgb (12.0-15.0) g/dL Hct (36.0-48.0) % MCV (80-98) fL MCH (27-31) pg MCHC (32-36) % Plt Count (150-400) K/uL D-Dimer, Quantitative (0.0-500.0) ng/mL Sodium 134 L (140-148) mmol/L Potassium 4.0 (3.6-5.2) mmol/L Chloride 97 L (100-108) mmol/L Carbon Dioxide 26 (21-32) mmol/L Anion Gap 15.0 H (5.0-14.0) mmol/L BUN 9 (7-18) mg/dL Creatinine 0.8 (0.6-1.0) mg/dL Est Cr Clr Drug Dosing 91.47 mL/min Estimated GFR (MDRD) > 60 (>60) Glucose 94 (74-106) mg/dL Lactic Acid 1.6 (0.4-2.0) mmol/L Calcium 8.2 L (8.5-10.1) mg/dL Total Bilirubin 0.3 (0.2-1.0) mg/dL Direct Bilirubin 0.16 (0.0-0.2) mg/dL Indirect Bilirubin 0.14 AST 63 H (15-37) U/L ALT 41 (12-78) U/L Alkaline Phosphatase 107 (46-116) U/L C-Reactive Protein 27.88 H (0.0-0.3) mg/dL Total Protein 6.7 (6.4-8.2) g/dL Albumin 2.6 L (3.4-5.0) g/dL Globulin 4.1 H (2.3-3.5) g/dL Albumin/Globulin Ratio 0.6 L (1.2-2.2) Procalcitonin 0.47 ng/mL 01/11/21 01/12/21 01/12/21 Range/Units 13:10 04:40 04:40 WBC 4.0 L (4.5-11.0) K/uL RBC 4.82 (3.30-5.50) M/uL Hgb 13.3 (12.0-15.0) g/dL Hct 41.2 (36.0-48.0) % MCV 86 (80-98) fL MCH 28 (27-31) pg MCHC 32 (32-36) % Plt Count 241 (150-400) K/uL D-Dimer, Quantitative 1767.43 H (0.0-500.0) ng/mL Sodium (140-148) mmol/L Potassium (3.6-5.2) mmol/L Chloride (100-108) mmol/L Carbon Dioxide (21-32) mmol/L Anion Gap (5.0-14.0) mmol/L BUN (7-18) mg/dL Creatinine (0.6-1.0) mg/dL Est Cr Clr Drug Dosing mL/min Estimated GFR (MDRD) (>60) Glucose (74-106) mg/dL Lactic Acid (0.4-2.0) mmol/L Calcium (8.5-10.1) mg/dL Total Bilirubin (0.2-1.0) mg/dL Direct Bilirubin (0.0-0.2) mg/dL Indirect Bilirubin AST (15-37) U/L ALT (12-78) U/L Alkaline Phosphatase (46-116) U/L C-Reactive Protein (0.0-0.3) mg/dL Total Protein (6.4-8.2) g/dL Albumin (3.4-5.0) g/dL Globulin (2.3-3.5) g/dL Albumin/Globulin Ratio (1.2-2.2) Procalcitonin 0.30 ng/mL 01/12/21 Range/Units 04:40 WBC (4.5-11.0) K/uL RBC (3.30-5.50) M/uL Hgb (12.0-15.0) g/dL Hct (36.0-48.0) % MCV (80-98) fL MCH (27-31) pg MCHC (32-36) % Plt Count (150-400) K/uL D-Dimer, Quantitative (0.0-500.0) ng/mL Sodium 138 L (140-148) mmol/L Potassium 3.9 (3.6-5.2) mmol/L Chloride 100 (100-108) mmol/L Carbon Dioxide 26 (21-32) mmol/L Anion Gap 15.9 H (5.0-14.0) mmol/L BUN 10 (7-18) mg/dL Creatinine 0.6 (0.6-1.0) mg/dL Est Cr Clr Drug Dosing 121.96 mL/min Estimated GFR (MDRD) > 60 (>60) Glucose 124 H (74-106) mg/dL Lactic Acid (0.4-2.0) mmol/L Calcium 8.2 L (8.5-10.1) mg/dL Total Bilirubin 0.3 (0.2-1.0) mg/dL Direct Bilirubin (0.0-0.2) mg/dL Indirect Bilirubin AST 76 H (15-37) U/L ALT 43 (12-78) U/L Alkaline Phosphatase 100 (46-116) U/L C-Reactive Protein (0.0-0.3) mg/dL Total Protein 6.0 L (6.4-8.2) g/dL Albumin 2.6 L (3.4-5.0) g/dL Globulin 3.4 (2.3-3.5) g/dL Albumin/Globulin Ratio 0.8 L (1.2-2.2) Procalcitonin ng/mL Med Orders - Current: Current Medications Acetaminophen (Acetaminophen Soln 650 Mg/20.3 Ml Ud Cup) 650 mg PO Q4H PRN PRN Reason: Pain Last Admin: 01/11/21 20:49 Dose: 650 mg Documented by: Azelastine HCl (Azelastine Nasal Soln [address] Bottle) 0 ml BENNY BID [facility] Last Admin: 01/12/21 08:32 Dose: Not Given Documented by: Benzonatate (Benzonatate 100 Mg Cap) 100 mg PO TID PRN PRN Reason: Cough Last Admin: 01/11/21 22:08 Dose: 100 mg Documented by: Dexamethasone (Dexamethasone 4 Mg/Ml Sdv) 6 mg IVPUSH Q24H [facility] Stop: 01/20/21 13:01 Enoxaparin Sodium (Enoxaparin 40 Mg/0.4 Ml Syringe) 40 mg SUBCUT Q24H [facility] Guaifenesin/Dextromethorphan (Guaifenesin/Dextromethorphan 100-10 Mg/5 Ml Soln 10 Ml Cup) 10 ml PO Q4H PRN PRN Reason: Cough Remdesivir 100 mg/ Sodium (Chloride) 100 mls @ 100 mls/hr IV Q24H [facility] Stop: 01/15/21 13:59 Lorazepam (Lorazepam 2 Mg/Ml Sdv) 0.5 mg IVPUSH Q4H PRN PRN Reason: Nausea/Vomiting Magnesium Hydroxide (Magnesium Hydroxide 400 Mg/5 Ml Susp 30 Ml Cup) 30 ml PO Q12H PRN PRN Reason: Constipation Ondansetron HCl (Ondansetron 4 Mg/2 Ml Sdv) 4 mg IV Q6H PRN PRN Reason: Nausea/Vomiting Ondansetron HCl (Ondansetron 4 Mg Tab.Dis) 4 mg PO Q6H PRN PRN Reason: Nausea able to take PO Senna/Docusate Sodium (Docusate Sodium/Sennosides 50-8.6 Mg Tab) 1 tab PO BID PRN PRN Reason: Constipation Tramadol HCl (Tramadol 50 Mg Tab) 50 mg PO Q4H PRN PRN Reason: Pain Discontinued Medications Acetaminophen (Acetaminophen 325 Mg Tab) 650 mg PO Q4H PRN PRN Reason: Fever Greater Than 101 Last Admin: 01/11/21 13:53 Dose: 650 mg Documented by: Acetaminophen (Acetaminophen 325 Mg Tab) 650 mg PO Q4H PRN PRN Reason: Pain (Mild 1-3)/fever Benzonatate (Benzonatate 100 Mg Cap) 200 mg PO ONETIME ONE Stop: 01/11/21 12:47 Last Admin: 01/11/21 13:53 Dose: 200 mg Documented by: Cyanocobalamin (Cyanocobalamin (Vitamin B12) 1,000 Mcg Tab) 1,000 mcg SL DAILY [facility] Dexamethasone (Dexamethasone 4 Mg/Ml Sdv) 6 mg IVPUSH DAILY [facility] Stop: 01/20/21 09:01 Last Admin: 01/11/21 13:58 Dose: 6 mg Documented by: Enoxaparin Sodium (Enoxaparin 40 Mg/0.4 Ml Syringe) 40 mg SUBCUT ONETIME ONE Stop: 01/11/21 12:53 Last Admin: 01/11/21 14:32 Dose: 40 mg Documented by: Furosemide (Furosemide 20 Mg/2 Ml Vial) 20 mg IVPUSH NOW ONE Stop: 01/11/21 16:16 Last Admin: 01/11/21 17:03 Dose: 20 mg Documented by: Furosemide (Furosemide 20 Mg/2 Ml Vial) 20 mg IVPUSH ONETIME ONE Stop: 01/12/21 09:01 Last Admin: 01/12/21 08:32 Dose: 20 mg Documented by: Remdesivir 200 mg/ Sodium (Chloride) 250 mls @ 250 mls/hr IV ONETIME ONE Stop: 01/11/21 12:46 Last Admin: 01/11/21 14:29 Dose: 250 mls/hr Documented by: Multivitamins/Minerals (Multivitamins With Iron/Calcium/Folic Acid/Minerals Tab) 1 tab PO DAILY [facility] Vitamin B Complex (Vitamin B Complex Tab) 1 each PO DAILY [facility] - Exam Quality Assessment: Supplemental Oxygen General: Alert, Oriented, Cooperative, No Acute Distress Lungs: Normal Respiratory Effort, Crackles (mild both lower lungs and right mid lung ). No: Wheezing Cardiovascular: Regular Rate, Regular Rhythm GI/Abdominal Exam: Soft, No Distention Extremities: No Pedal Edema. No: Increased Warmth Skin: Warm, Dry Psy/Mental Status: Alert, Normal Affect - Patient Data Lab Results Last 24 hrs: Laboratory Results - last 24 hr 01/11/21 01/11/21 01/11/21 Range/Units 12:45 13:10 13:10 WBC (4.5-11.0) K/uL RBC (3.30-5.50) M/uL Hgb (12.0-15.0) g/dL Hct (36.0-48.0) % MCV (80-98) fL MCH (27-31) pg MCHC (32-36) % Plt Count (150-400) K/uL D-Dimer, Quantitative (0.0-500.0) ng/mL Sodium 134 L (140-148) mmol/L Potassium 4.0 (3.6-5.2) mmol/L Chloride 97 L (100-108) mmol/L Carbon Dioxide 26 (21-32) mmol/L Anion Gap 15.0 H (5.0-14.0) mmol/L BUN 9 (7-18) mg/dL Creatinine 0.8 (0.6-1.0) mg/dL Est Cr Clr Drug Dosing 91.47 mL/min Estimated GFR (MDRD) > 60 (>60) Glucose 94 (74-106) mg/dL Lactic Acid 1.6 (0.4-2.0) mmol/L Calcium 8.2 L (8.5-10.1) mg/dL Total Bilirubin 0.3 (0.2-1.0) mg/dL Direct Bilirubin 0.16 (0.0-0.2) mg/dL Indirect Bilirubin 0.14 AST 63 H (15-37) U/L ALT 41 (12-78) U/L Alkaline Phosphatase 107 (46-116) U/L C-Reactive Protein 27.88 H (0.0-0.3) mg/dL Total Protein 6.7 (6.4-8.2) g/dL Albumin 2.6 L (3.4-5.0) g/dL Globulin 4.1 H (2.3-3.5) g/dL Albumin/Globulin Ratio 0.6 L (1.2-2.2) Procalcitonin 0.47 ng/mL 01/11/21 01/12/21 01/12/21 Range/Units 13:10 04:40 04:40 WBC 4.0 L (4.5-11.0) K/uL RBC 4.82 (3.30-5.50) M/uL Hgb 13.3 (12.0-15.0) g/dL Hct 41.2 (36.0-48.0) % MCV 86 (80-98) fL MCH 28 (27-31) pg MCHC 32 (32-36) % Plt Count 241 (150-400) K/uL D-Dimer, Quantitative 1767.43 H (0.0-500.0) ng/mL Sodium (140-148) mmol/L Potassium (3.6-5.2) mmol/L Chloride (100-108) mmol/L Carbon Dioxide (21-32) mmol/L Anion Gap (5.0-14.0) mmol/L BUN (7-18) mg/dL Creatinine (0.6-1.0) mg/dL Est Cr Clr Drug Dosing mL/min Estimated GFR (MDRD) (>60) Glucose (74-106) mg/dL Lactic Acid (0.4-2.0) mmol/L Calcium (8.5-10.1) mg/dL Total Bilirubin (0.2-1.0) mg/dL Direct Bilirubin (0.0-0.2) mg/dL Indirect Bilirubin AST (15-37) U/L ALT (12-78) U/L Alkaline Phosphatase (46-116) U/L C-Reactive Protein (0.0-0.3) mg/dL Total Protein (6.4-8.2) g/dL Albumin (3.4-5.0) g/dL Globulin (2.3-3.5) g/dL Albumin/Globulin Ratio (1.2-2.2) Procalcitonin 0.30 ng/mL 01/12/21 Range/Units 04:40 WBC (4.5-11.0) K/uL RBC (3.30-5.50) M/uL Hgb (12.0-15.0) g/dL Hct (36.0-48.0) % MCV (80-98) fL MCH (27-31) pg MCHC (32-36) % Plt Count (150-400) K/uL D-Dimer, Quantitative (0.0-500.0) ng/mL Sodium 138 L (140-148) mmol/L Potassium 3.9 (3.6-5.2) mmol/L Chloride 100 (100-108) mmol/L Carbon Dioxide 26 (21-32) mmol/L Anion Gap 15.9 H (5.0-14.0) mmol/L BUN 10 (7-18) mg/dL Creatinine 0.6 (0.6-1.0) mg/dL Est Cr Clr Drug Dosing 121.96 mL/min Estimated GFR (MDRD) > 60 (>60) Glucose 124 H (74-106) mg/dL Lactic Acid (0.4-2.0) mmol/L Calcium 8.2 L (8.5-10.1) mg/dL Total Bilirubin 0.3 (0.2-1.0) mg/dL Direct Bilirubin (0.0-0.2) mg/dL Indirect Bilirubin AST 76 H (15-37) U/L ALT 43 (12-78) U/L Alkaline Phosphatase 100 (46-116) U/L C-Reactive Protein (0.0-0.3) mg/dL Total Protein 6.0 L (6.4-8.2) g/dL Albumin 2.6 L (3.4-5.0) g/dL Globulin 3.4 (2.3-3.5) g/dL Albumin/Globulin Ratio 0.8 L (1.2-2.2) Procalcitonin ng/mL Result Diagrams: 01/12/21 04:40 01/12/21 04:40 Sepsis Event Note - Evaluation Sepsis Screening Result: No Definite Risk - Focused Exam Vital Signs: Vital Signs Temp Pulse Resp BP Pulse Ox Pulse Ox 01/12/21 12:52 89 L 01/12/21 10:12 37.3 C 89 18 109/68 92 L 01/12/21 07:12 90 L 01/12/21 07:00 35.3 C L 97 18 136/75 93 L 01/12/21 03:30 92 L 01/12/21 02:48 35.6 C L 86 24 H 123/77 94 L - Problem List & Annotations (1) COVID-19 SNOMED Code(s): 407448673 Code(s): U07.1 - COVID-19 Status: Acute Current Visit: Yes (2) Acute respiratory failure due to COVID-19 SNOMED Code(s): 770658854 Code(s): U07.1 - COVID-19; J96.00 - ACUTE RESPIRATORY FAILURE, UNSP W HYPOXIA OR HYPERCAPNIA Status: Acute Current Visit: Yes (3) Status post gastric bypass for obesity SNOMED Code(s): 155621581, 989699961, 120900957, 829145037 Code(s): Z98.84 - BARIATRIC SURGERY STATUS Status: Chronic Current Visit: No (4) Morbid obesity with BMI of 40.0-44.9, adult SNOMED Code(s): 370361280, 22978961423417 Code(s): E66.01 - MORBID (SEVERE) OBESITY DUE TO EXCESS CALORIES; Z68.41 - BODY MASS INDEX [BMI] 40.0-44.9, ADULT Status: Chronic Current Visit: No - Problem List Review Problem List Initiated/Reviewed/Updated: Yes - My Orders Last 24 Hours: My Active Orders 01/11/21 15:10 Resuscitation Status Routine 01/11/21 16:00 Benzonatate [Tessalon Perles] 100 mg PO TID PRN Dextromethorphan/guaiFENesin [Robitussin DM] 10 ml PO Q4H PRN Docusate Sodium/Sennosides [Senna Plus] 1 tab PO BID PRN LORazepam [Ativan] 0.5 mg IVPUSH Q4H PRN Magnesium Hydroxide [Milk of Magnesia] 30 ml PO Q12H PRN Ondansetron [Zofran ODT] 4 mg PO Q6H PRN Ondansetron [Zofran] 4 mg IV Q6H PRN traMADol [Ultram] 50 mg PO Q4H PRN 01/11/21 16:00 Patient Status [ADT] Routine Intake and Output [RC] QSHIFT Notify Provider Vital Signs [RC] ASDIRECTED Oxygen Therapy [RC] PRN Pulse Oximetry [RC] CONTINUOUS Up With Assistance [RC] ASDIRECTED VTE/DVT Education [RC] Per Unit Routine Vital Signs [RC] Q4H Isolation [COMM] Routine 01/11/21 Dinner Bariatric Diet [DIET] 01/11/21 20:44 Acetaminophen [Tylenol] 650 mg PO Q4H PRN 01/12/21 09:00 Azelastine [Astelin Nasal Soln] 0 ml BENNY BID 01/12/21 13:00 Enoxaparin [Lovenox] 40 mg SUBCUT Q24H Remdesivir 100 mg Sodium Chloride 0.9% [Normal Saline] 100 ml IV Q24H dexAMETHasone [Decadron] 6 mg IVPUSH Q24H 01/13/21 05:00 C-REACTIVE PROTEIN [CHEM] Timed CBC W/O DIFF,HEMOGRAM [HEME] Timed (1) COMPREHENSIVE METABOLIC PN,CMP [CHEM] Timed D-DIMER QUANTITATIVE [COAG] Timed - Plan Plan:: ASSESSMENT AND PLAN - COVID-19 pneumonia-complicated by acute respiratory failure with hypoxia. Symptom onset of 01/08 and positive test on 01/11. Supplemental oxygen requirements slightly higher today but otherwise stable. No fevers. -Dexamethasone 6 mg daily (day 2) -Remdesivir x5 days -Enoxaparin every 24 hours -Repeat CRP and D-dimer every 2 to 3 days -Supplement oxygen, wean as able -Isolation precautions Morbid obesity with BMI greater than 40-status post bariatric surgery on 01/06. Pain well controlled. Doing well surgically. -Symptomatic management of pain -Surgical follow-up per Dr. Johnson Maintenance issues - -DVT prophylaxis-enoxaparin -GI prophylaxis-not indicated -Nutrition-step 2 diet Disposition -I anticipate discharge home after the hospital stay Amador Thornton M.D.
[2021-01-12] MEDS: Dexamethasone 4 MG/ML SDV IVPUSH SCH (14:25)
[2021-01-12] MEDS: REMDESIVIR 100 MG in Sodium Chloride 0.9% 100 ML IV SCH (14:25)
[2021-01-12] MEDS: Enoxaparin 40 MG/0.4 ML Syringe SUBCUT SCH (14:26)
[2021-01-13] MEDS ORDERED: Furosemide 20 MG/2 ML VIAL IVPUSH ONE (08:13)
--- NOTE | 2021-01-13 09:04 | PN ---
DATE OF SERVICE: 01/13/2021 SUBJECTIVE: Talya had been put on 15 L of rebreather mask oxygen, currently is at 93%. She is afebrile. Reports being very tired. Oral intake 1410, urine output 720, and she did have one bowel movement. Denies any surgical pain. Reports headache, feeling tired. Her concentration, she states this is not what it normally was. OBJECTIVE: NECK: Negative. LUNGS: States that her breathing is better than it was prior to earlier yesterday. ABDOMEN: Denies any pain. EXTREMITIES: Without peripheral edema. NEUROLOGIC: Intact. PSYCHIATRIC: Mood and affect labile. ASSESSMENT: 1. COVID-19. 2. Acute respiratory failure due to COVID. 3. 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 PLAN: Continue to do the best she can as far as oral liquids and protein. We will evaluate p.r.n. or in a.m. Dixie Landa PA-C /[id number]
[2021-01-13] MEDS: Azelastine Nasal Soln 30 ML Spray Bottle NAS SCH (11:53)
--- NOTE | 2021-01-13 12:21 | PCM.PN ---
- General Info Date of Service: 01/13/21 Subjective Update: No acute events overnight. Patient thinks she feels a little less short of breath today but is requiring more supplemental oxygen. She is up to 15 L of oxygen today. She does have a productive cough with sputum as well as some blood-tinged sputum. No significant chest pain. No abdominal pain. Able to do some proning. Inflammatory markers are improving. No fevers. Functional Status: Reports: Pain Controlled, Tolerating Diet - Review of Systems General: Denies: Fever Pulmonary: Reports: Shortness of Breath - Patient Data Vitals - Most Recent: Last Vital Signs Temp 36.2 C 01/13/21 10:35 Pulse 95 01/13/21 10:35 Resp 18 01/13/21 10:35 BP 135/84 01/13/21 10:35 Pulse Ox 91 L 01/13/21 10:35 Weight - Most Recent: 127.006 kg I&O - Last 24 Hours: Intake & Output 01/12/21 01/13/21 01/13/21 22:59 06:59 14:59 Intake Total 800 550 420 Output Total 425 Balance 375 550 420 Lab Results Last 24 Hours: Laboratory Results - last 24 hr 01/13/21 01/13/21 01/13/21 Range/Units 06:39 06:39 06:40 WBC 4.1 L (4.5-11.0) K/uL RBC 4.81 (3.30-5.50) M/uL Hgb 13.4 (12.0-15.0) g/dL Hct 41.3 (36.0-48.0) % MCV 86 (80-98) fL MCH 28 (27-31) pg MCHC 32 (32-36) % Plt Count 292 (150-400) K/uL D-Dimer, Quantitative 1631.78 H (0.0-500.0) ng/mL Sodium 141 (140-148) mmol/L Potassium 3.9 (3.6-5.2) mmol/L Chloride 101 (100-108) mmol/L Carbon Dioxide 29 (21-32) mmol/L Anion Gap 11.3 (5.0-14.0) mmol/L BUN 13 (7-18) mg/dL Creatinine 0.5 L (0.6-1.0) mg/dL Est Cr Clr Drug Dosing 146.35 mL/min Estimated GFR (MDRD) > 60 (>60) Glucose 120 H (74-106) mg/dL Calcium 8.2 L (8.5-10.1) mg/dL Total Bilirubin 0.3 (0.2-1.0) mg/dL AST 84 H (15-37) U/L ALT 46 (12-78) U/L Alkaline Phosphatase 89 (46-116) U/L C-Reactive Protein 10.16 H (0.0-0.3) mg/dL Total Protein 5.9 L (6.4-8.2) g/dL Albumin 2.6 L (3.4-5.0) g/dL Globulin 3.3 (2.3-3.5) g/dL Albumin/Globulin Ratio 0.8 L (1.2-2.2) Med Orders - Current: Current Medications Acetaminophen (Acetaminophen Soln 650 Mg/20.3 Ml Ud Cup) 650 mg PO Q4H PRN PRN Reason: Pain Last Admin: 01/11/21 20:49 Dose: 650 mg Documented by: Azelastine HCl (Azelastine Nasal Soln 30 Ml [address] Bottle) 0 ml BENNY BID [facility] Last Admin: 01/13/21 11:53 Dose: Not Given Documented by: Benzonatate (Benzonatate 100 Mg Cap) 100 mg PO TID PRN PRN Reason: Cough Last Admin: 01/11/21 22:08 Dose: 100 mg Documented by: Dexamethasone (Dexamethasone 4 Mg/Ml Sdv) 6 mg IVPUSH Q24H [facility] Stop: 01/20/21 13:01 Last Admin: 01/12/21 14:25 Dose: 6 mg Documented by: Enoxaparin Sodium (Enoxaparin 40 Mg/0.4 Ml Syringe) 40 mg SUBCUT Q24H [facility] Last Admin: 01/12/21 14:26 Dose: 40 mg Documented by: Guaifenesin/Dextromethorphan (Guaifenesin/Dextromethorphan 100-10 Mg/5 Ml Soln 10 Ml Cup) 10 ml PO Q4H PRN PRN Reason: Cough Remdesivir 100 mg/ Sodium (Chloride) 100 mls @ 100 mls/hr IV Q24H [facility] Stop: 01/15/21 13:59 Last Admin: 01/12/21 14:25 Dose: 100 mls/hr Documented by: Lorazepam (Lorazepam 2 Mg/Ml Sdv) 0.5 mg IVPUSH Q4H PRN PRN Reason: Nausea/Vomiting Magnesium Hydroxide (Magnesium Hydroxide 400 Mg/5 Ml Susp 30 Ml Cup) 30 ml PO Q12H PRN PRN Reason: Constipation Ondansetron HCl (Ondansetron 4 Mg/2 Ml Sdv) 4 mg IV Q6H PRN PRN Reason: Nausea/Vomiting Ondansetron HCl (Ondansetron 4 Mg Tab.Dis) 4 mg PO Q6H PRN PRN Reason: Nausea able to take PO Senna/Docusate Sodium (Docusate Sodium/Sennosides 50-8.6 Mg Tab) 1 tab PO BID PRN PRN Reason: Constipation Tramadol HCl (Tramadol 50 Mg Tab) 50 mg PO Q4H PRN PRN Reason: Pain Discontinued Medications Acetaminophen (Acetaminophen 325 Mg Tab) 650 mg PO Q4H PRN PRN Reason: Fever Greater Than 101 Last Admin: 01/11/21 13:53 Dose: 650 mg Documented by: Acetaminophen (Acetaminophen 325 Mg Tab) 650 mg PO Q4H PRN PRN Reason: Pain (Mild 1-3)/fever Benzonatate (Benzonatate 100 Mg Cap) 200 mg PO ONETIME ONE Stop: 01/11/21 12:47 Last Admin: 01/11/21 13:53 Dose: 200 mg Documented by: Cyanocobalamin (Cyanocobalamin (Vitamin B12) 1,000 Mcg Tab) 1,000 mcg SL DAILY [facility] Dexamethasone (Dexamethasone 4 Mg/Ml Sdv) 6 mg IVPUSH DAILY [facility] Stop: 01/20/21 09:01 Last Admin: 01/11/21 13:58 Dose: 6 mg Documented by: Enoxaparin Sodium (Enoxaparin 40 Mg/0.4 Ml Syringe) 40 mg SUBCUT ONETIME ONE Stop: 01/11/21 12:53 Last Admin: 01/11/21 14:32 Dose: 40 mg Documented by: Furosemide (Furosemide 20 Mg/2 Ml Vial) 20 mg IVPUSH NOW ONE Stop: 01/11/21 16:16 Last Admin: 01/11/21 17:03 Dose: 20 mg Documented by: Furosemide (Furosemide 20 Mg/2 Ml Vial) 20 mg IVPUSH ONETIME ONE Stop: 01/12/21 09:01 Last Admin: 01/12/21 08:32 Dose: 20 mg Documented by: Furosemide (Furosemide 20 Mg/2 Ml Vial) 20 mg IVPUSH ONETIME ONE Stop: 01/13/21 08:14 Last Admin: 01/13/21 11:44 Dose: 20 mg Documented by: Remdesivir 200 mg/ Sodium (Chloride) 250 mls @ 250 mls/hr IV ONETIME ONE Stop: 01/11/21 12:46 Last Admin: 01/11/21 14:29 Dose: 250 mls/hr Documented by: Multivitamins/Minerals (Multivitamins With Iron/Calcium/Folic Acid/Minerals Tab) 1 tab PO DAILY [facility] Vitamin B Complex (Vitamin B Complex Tab) 1 each PO DAILY [facility] - Exam Quality Assessment: Supplemental Oxygen General: Alert, Oriented, Cooperative, No Acute Distress Lungs: Normal Respiratory Effort, Crackles (few both bases) Cardiovascular: Regular Rate, Regular Rhythm GI/Abdominal Exam: Soft, No Distention Extremities: No Pedal Edema. No: Increased Warmth Skin: Warm, Dry Psy/Mental Status: Alert, Normal Affect - Patient Data Lab Results Last 24 hrs: Laboratory Results - last 24 hr 01/13/21 01/13/21 01/13/21 Range/Units 06:39 06:39 06:40 WBC 4.1 L (4.5-11.0) K/uL RBC 4.81 (3.30-5.50) M/uL Hgb 13.4 (12.0-15.0) g/dL Hct 41.3 (36.0-48.0) % MCV 86 (80-98) fL MCH 28 (27-31) pg MCHC 32 (32-36) % Plt Count 292 (150-400) K/uL D-Dimer, Quantitative 1631.78 H (0.0-500.0) ng/mL Sodium 141 (140-148) mmol/L Potassium 3.9 (3.6-5.2) mmol/L Chloride 101 (100-108) mmol/L Carbon Dioxide 29 (21-32) mmol/L Anion Gap 11.3 (5.0-14.0) mmol/L BUN 13 (7-18) mg/dL Creatinine 0.5 L (0.6-1.0) mg/dL Est Cr Clr Drug Dosing 146.35 mL/min Estimated GFR (MDRD) > 60 (>60) Glucose 120 H (74-106) mg/dL Calcium 8.2 L (8.5-10.1) mg/dL Total Bilirubin 0.3 (0.2-1.0) mg/dL AST 84 H (15-37) U/L ALT 46 (12-78) U/L Alkaline Phosphatase 89 (46-116) U/L C-Reactive Protein 10.16 H (0.0-0.3) mg/dL Total Protein 5.9 L (6.4-8.2) g/dL Albumin 2.6 L (3.4-5.0) g/dL Globulin 3.3 (2.3-3.5) g/dL Albumin/Globulin Ratio 0.8 L (1.2-2.2) Result Diagrams: 01/13/21 06:40 01/13/21 06:39 Sepsis Event Note - Evaluation Sepsis Screening Result: No Definite Risk - Focused Exam Vital Signs: Vital Signs Temp Pulse Resp BP Pulse Ox Pulse Ox 01/13/21 10:35 36.2 C 95 18 135/84 91 L 01/13/21 07:47 36.3 C 91 18 119/75 93 L 01/13/21 07:26 92 L 01/13/21 07:23 93 L 01/13/21 04:00 35.7 C L 86 18 116/61 96 01/13/21 03:00 90 L 01/13/21 00:41 85 L 01/13/21 00:35 22 H 90 L - Problem List & Annotations (1) COVID-19 SNOMED Code(s): 051108495 Code(s): U07.1 - COVID-19 Status: Acute Current Visit: Yes (2) Acute respiratory failure due to COVID-19 SNOMED Code(s): 258102016 Code(s): U07.1 - COVID-19; J96.00 - ACUTE RESPIRATORY FAILURE, UNSP W HYPOXIA OR HYPERCAPNIA Status: Acute Current Visit: Yes (3) Status post gastric bypass for obesity SNOMED Code(s): 507967716, 726808327, 373293355, 503846773 Code(s): Z98.84 - BARIATRIC SURGERY STATUS Status: Chronic Current Visit: No (4) Morbid obesity with BMI of 40.0-44.9, adult SNOMED Code(s): 813146817, 48276543369944 Code(s): E66.01 - MORBID (SEVERE) OBESITY DUE TO EXCESS CALORIES; Z68.41 - BODY MASS INDEX [BMI] 40.0-44.9, ADULT Status: Chronic Current Visit: No - Problem List Review Problem List Initiated/Reviewed/Updated: Yes - My Orders Last 24 Hours: My Active Orders 01/12/21 13:00 Enoxaparin [Lovenox] 40 mg SUBCUT Q24H Remdesivir 100 mg Sodium Chloride 0.9% [Normal Saline] 100 ml IV Q24H dexAMETHasone [Decadron] 6 mg IVPUSH Q24H 01/13/21 12:30 Doxycycline [Vibramycin] 100 mg Sodium Chloride 0.9% [Normal Saline AdvBag] 100 ml IV Q12H 01/13/21 13:00 cefTRIAXone [Rocephin] 2 gm Sodium Chloride 0.9% [Normal Saline AdvBag] 50 ml IV Q24H 01/14/21 05:00 BASIC METABOLIC PANEL,BMP [CHEM] Timed CBC W/O DIFF,HEMOGRAM [HEME] Timed (1) - Plan Plan:: ASSESSMENT AND PLAN - COVID-19 pneumonia-complicated by acute respiratory failure with hypoxia. Symptom onset of 01/08 and positive test on 01/11. Supplemental oxygen requirements higher again today. With increasing sputum and borderline procalcitonin we are going to initiate antibiotics. Symptomatically she is feeling better and inflammatory markers are improving. -Dexamethasone 6 mg daily (day 3) -Remdesivir x5 days -Enoxaparin every 24 hours -Empiric doxycycline and ceftriaxone -Consider baricitinib if respiratory status declines further -Repeat CRP and D-dimer every 2 to 3 days -Supplement oxygen, wean as able -Isolation precautions Morbid obesity with BMI greater than 40-status post bariatric surgery on 01/06. Pain well controlled and doing well from the standpoint. -Symptomatic management of pain -Surgical follow-up per Dr. Johnson Maintenance issues - -DVT prophylaxis-enoxaparin -GI prophylaxis-not indicated -Nutrition-step 2 diet Disposition -I anticipate discharge home after the hospital stay Amador Thornton M.D.
[2021-01-13] MEDS: Dexamethasone 4 MG/ML SDV IVPUSH SCH (13:35)
[2021-01-13] MEDS: cefTRIAXone 2 GM in Sodium Chloride 0.9% 50 ML IV SCH (13:38)
[2021-01-13] MEDS: Enoxaparin 40 MG/0.4 ML Syringe SUBCUT SCH (13:58)
[2021-01-13] MEDS: REMDESIVIR 100 MG in Sodium Chloride 0.9% 100 ML IV SCH (15:22)
[2021-01-13] MEDS: Doxycycline 100 MG in Sodium Chloride 0.9% 100 ML IV SCH (16:32)
[2021-01-14] MEDS: Azelastine Nasal Soln 30 ML Spray Bottle NAS SCH ×3 (01:47→21:27)
[2021-01-14] MEDS: Doxycycline 100 MG in Sodium Chloride 0.9% 100 ML IV SCH ×2 (03:04→14:54)
--- NOTE | 2021-01-14 11:16 | PN ---
DATE OF SERVICE: 01/14/2021 The patient is more or less holding her own with COVID at this point, maintaining adequate O2 saturations on 15 L, which is the same as yesterday. The patient had moved her bowels and her oral intake is fair. We will continue to follow the patient along with Dr. Thornton. Tera Johnson MD Job #: [id number]
--- NOTE | 2021-01-14 12:34 | PCM.PN ---
- General Info Date of Service: 01/14/21 Subjective Update: There were no acute events overnight. She has remained stable on 15 L of supplemental oxygen. Saturations have been in the low 90s. She feels a little less short of breath and a little more energetic today. Occasional cough. No fevers. No significant belly pain. Able to do a little bit of prone positioning. CRP and D-dimer are improving. Functional Status: Reports: Pain Controlled, Tolerating Diet - Review of Systems Cardiovascular: Reports: Chest Pain - Patient Data Vitals - Most Recent: Last Vital Signs Temp 36.0 C L 01/14/21 11:35 Pulse 89 01/14/21 11:35 Resp 18 01/14/21 11:35 BP 113/67 01/14/21 11:35 Pulse Ox 96 01/14/21 11:35 Weight - Most Recent: 127.006 kg I&O - Last 24 Hours: Intake & Output 01/13/21 01/14/21 01/14/21 22:59 06:59 14:59 Intake Total 540 100 Output Total 950 Balance -410 100 Lab Results Last 24 Hours: Laboratory Results - last 24 hr 01/14/21 01/14/21 Range/Units 04:15 04:15 WBC 5.5 (4.5-11.0) K/uL RBC 5.00 (3.30-5.50) M/uL Hgb 13.7 (12.0-15.0) g/dL Hct 43.4 (36.0-48.0) % MCV 87 (80-98) fL MCH 27 (27-31) pg MCHC 32 (32-36) % Plt Count 324 (150-400) K/uL Sodium 142 (140-148) mmol/L Potassium 3.7 (3.6-5.2) mmol/L Chloride 102 (100-108) mmol/L Carbon Dioxide 30 (21-32) mmol/L Anion Gap 10.4 (5.0-14.0) mmol/L BUN 15 (7-18) mg/dL Creatinine 0.7 (0.6-1.0) mg/dL Est Cr Clr Drug Dosing 104.53 mL/min Estimated GFR (MDRD) > 60 (>60) Glucose 113 H (74-106) mg/dL Calcium 8.5 (8.5-10.1) mg/dL Med Orders - Current: Current Medications Acetaminophen (Acetaminophen Soln 650 Mg/20.3 Ml Ud Cup) 650 mg PO Q4H PRN PRN Reason: Pain Last Admin: 01/11/21 20:49 Dose: 650 mg Documented by: Azelastine HCl (Azelastine Nasal Soln 30 Ml [place] Bottle) 0 ml BENNY BID OMAYRA Last Admin: 01/14/21 10:24 Dose: Not Given Documented by: Benzonatate (Benzonatate 100 Mg Cap) 100 mg PO TID PRN PRN Reason: Cough Last Admin: 01/11/21 22:08 Dose: 100 mg Documented by: Dexamethasone (Dexamethasone 4 Mg/Ml Sdv) 6 mg IVPUSH Q24H [facility] Stop: 01/20/21 13:01 Last Admin: 01/13/21 13:35 Dose: 6 mg Documented by: Enoxaparin Sodium (Enoxaparin 40 Mg/0.4 Ml Syringe) 40 mg SUBCUT Q24H [facility] Last Admin: 01/13/21 13:58 Dose: 40 mg Documented by: Guaifenesin/Dextromethorphan (Guaifenesin/Dextromethorphan 100-10 Mg/5 Ml Soln 10 Ml Cup) 10 ml PO Q4H PRN PRN Reason: Cough Remdesivir 100 mg/ Sodium (Chloride) 100 mls @ 100 mls/hr IV Q24H [facility] Stop: 01/15/21 13:59 Last Admin: 01/13/21 15:22 Dose: 100 mls/hr Documented by: Doxycycline Hyclate 100 mg/ (Sodium Chloride) 100 mls @ 100 mls/hr IV Q12H [facility] Stop: 01/20/21 14:01 Last Admin: 01/14/21 03:04 Dose: 100 mls/hr Documented by: Ceftriaxone Sodium 2 gm/ (Sodium Chloride) 50 mls @ 100 mls/hr IV Q24H [facility] Stop: 01/19/21 13:29 Last Admin: 01/13/21 13:38 Dose: 100 mls/hr Documented by: Lorazepam (Lorazepam 2 Mg/Ml Sdv) 0.5 mg IVPUSH Q4H PRN PRN Reason: Nausea/Vomiting Magnesium Hydroxide (Magnesium Hydroxide 400 Mg/5 Ml Susp 30 Ml Cup) 30 ml PO Q12H PRN PRN Reason: Constipation Ondansetron HCl (Ondansetron 4 Mg/2 Ml Sdv) 4 mg IV Q6H PRN PRN Reason: Nausea/Vomiting Ondansetron HCl (Ondansetron 4 Mg Tab.Dis) 4 mg PO Q6H PRN PRN Reason: Nausea able to take PO Senna/Docusate Sodium (Docusate Sodium/Sennosides 50-8.6 Mg Tab) 1 tab PO BID PRN PRN Reason: Constipation Tramadol HCl (Tramadol 50 Mg Tab) 50 mg PO Q4H PRN PRN Reason: Pain Discontinued Medications Acetaminophen (Acetaminophen 325 Mg Tab) 650 mg PO Q4H PRN PRN Reason: Fever Greater Than 101 Last Admin: 01/11/21 13:53 Dose: 650 mg Documented by: Acetaminophen (Acetaminophen 325 Mg Tab) 650 mg PO Q4H PRN PRN Reason: Pain (Mild 1-3)/fever Benzonatate (Benzonatate 100 Mg Cap) 200 mg PO ONETIME ONE Stop: 01/11/21 12:47 Last Admin: 01/11/21 13:53 Dose: 200 mg Documented by: Cyanocobalamin (Cyanocobalamin (Vitamin B12) 1,000 Mcg Tab) 1,000 mcg SL DAILY OMAYRA Dexamethasone (Dexamethasone 4 Mg/Ml Sdv) 6 mg IVPUSH DAILY [facility] Stop: 01/20/21 09:01 Last Admin: 01/11/21 13:58 Dose: 6 mg Documented by: Enoxaparin Sodium (Enoxaparin 40 Mg/0.4 Ml Syringe) 40 mg SUBCUT ONETIME ONE Stop: 01/11/21 12:53 Last Admin: 01/11/21 14:32 Dose: 40 mg Documented by: Furosemide (Furosemide 20 Mg/2 Ml Vial) 20 mg IVPUSH NOW ONE Stop: 01/11/21 16:16 Last Admin: 01/11/21 17:03 Dose: 20 mg Documented by: Furosemide (Furosemide 20 Mg/2 Ml Vial) 20 mg IVPUSH ONETIME ONE Stop: 01/12/21 09:01 Last Admin: 01/12/21 08:32 Dose: 20 mg Documented by: Furosemide (Furosemide 20 Mg/2 Ml Vial) 20 mg IVPUSH ONETIME ONE Stop: 01/13/21 08:14 Last Admin: 01/13/21 11:44 Dose: 20 mg Documented by: Remdesivir 200 mg/ Sodium (Chloride) 250 mls @ 250 mls/hr IV ONETIME ONE Stop: 01/11/21 12:46 Last Admin: 01/11/21 14:29 Dose: 250 mls/hr Documented by: Multivitamins/Minerals (Multivitamins With Iron/Calcium/Folic Acid/Minerals Tab) 1 tab PO DAILY OMAYRA Vitamin B Complex (Vitamin B Complex Tab) 1 each PO DAILY OMAYRA - Exam Quality Assessment: Supplemental Oxygen General: Alert, Oriented, Cooperative, No Acute Distress Lungs: Normal Respiratory Effort Cardiovascular: Other (point tenderness left lower sternum ) GI/Abdominal Exam: Soft, No Distention Extremities: No Pedal Edema Psy/Mental Status: Alert, Normal Affect - Patient Data Lab Results Last 24 hrs: Laboratory Results - last 24 hr 01/14/21 01/14/21 Range/Units 04:15 04:15 WBC 5.5 (4.5-11.0) K/uL RBC 5.00 (3.30-5.50) M/uL Hgb 13.7 (12.0-15.0) g/dL Hct 43.4 (36.0-48.0) % MCV 87 (80-98) fL MCH 27 (27-31) pg MCHC 32 (32-36) % Plt Count 324 (150-400) K/uL Sodium 142 (140-148) mmol/L Potassium 3.7 (3.6-5.2) mmol/L Chloride 102 (100-108) mmol/L Carbon Dioxide 30 (21-32) mmol/L Anion Gap 10.4 (5.0-14.0) mmol/L BUN 15 (7-18) mg/dL Creatinine 0.7 (0.6-1.0) mg/dL Est Cr Clr Drug Dosing 104.53 mL/min Estimated GFR (MDRD) > 60 (>60) Glucose 113 H (74-106) mg/dL Calcium 8.5 (8.5-10.1) mg/dL Result Diagrams: 01/14/21 04:15 01/14/21 04:15 Sepsis Event Note - Evaluation Sepsis Screening Result: No Definite Risk - Focused Exam Vital Signs: Vital Signs Temp Pulse Resp BP Pulse Ox 01/14/21 11:35 36.0 C L 89 18 113/67 96 01/14/21 07:58 35.9 C L 79 18 129/73 93 L 01/14/21 07:44 93 L 01/14/21 03:00 35.5 C L 77 18 110/51 L 93 L 01/14/21 01:20 89 L - Problem List & Annotations (1) COVID-19 SNOMED Code(s): 613150572 Code(s): U07.1 - COVID-19 Status: Acute Current Visit: Yes (2) Acute respiratory failure due to COVID-19 SNOMED Code(s): 170208461 Code(s): U07.1 - COVID-19; J96.00 - ACUTE RESPIRATORY FAILURE, UNSP W HYPOXIA OR HYPERCAPNIA Status: Acute Current Visit: Yes (3) Status post gastric bypass for obesity SNOMED Code(s): 159280165, 803908985, 652881746, 511608763 Code(s): Z98.84 - BARIATRIC SURGERY STATUS Status: Chronic Current Visit: No (4) Morbid obesity with BMI of 40.0-44.9, adult SNOMED Code(s): 728789052, 11123990934456 Code(s): E66.01 - MORBID (SEVERE) OBESITY DUE TO EXCESS CALORIES; Z68.41 - B [place] MASS INDEX [BMI] 40.0-44.9, ADULT Status: Chronic Current Visit: No - Problem List Review Problem List Initiated/Reviewed/Updated: Yes - My Orders Last 24 Hours: My Active Orders 01/13/21 13:00 cefTRIAXone [Rocephin] 2 gm Sodium Chloride 0.9% [Normal Saline AdvBag] 50 ml IV Q24H 01/13/21 14:00 Doxycycline [Vibramycin] 100 mg Sodium Chloride 0.9% [Normal Saline AdvBag] 100 ml IV Q12H 01/15/21 05:00 BASIC METABOLIC PANEL,BMP [CHEM] Timed CRP [C-REACTIVE PROTEIN] [CHEM] Timed D-DIMER QUANTITATIVE [COAG] Timed - Plan Plan:: ASSESSMENT AND PLAN - COVID-19 pneumonia-complicated by acute respiratory failure with hypoxia. Symptom onset of 01/07 and positive test on 01/11. Supplemental oxygen requirem ents stable. CRP has improved significantly. D-dimer slightly improved. Overall she looks better today. -Dexamethasone 6 mg daily (day 4) -Remdesivir x5 days -Enoxaparin every 24 hours -Empiric doxycycline and ceftriaxone (2 of 7) -Consider baricitinib if respiratory status declines further -Repeat CRP and D-dimer every 2 days -Supplement oxygen, wean as able -Isolation precautions Morbid obesity with BMI greater than 40-status post bariatric surgery on 01/06. Pain well controlled and doing well from the standpoint. -Symptomatic management of pain -Surgical follow-up per Dr. Johnson Maintenance issues - -DVT prophylaxis-enoxaparin -GI prophylaxis-not indicated -Nutrition-step 2 diet Disposition -I anticipate discharge home after the hospital stay Amador Thornton M.D.
[2021-01-14] MEDS: Dexamethasone 4 MG/ML SDV IVPUSH SCH (13:29)
[2021-01-14] MEDS: REMDESIVIR 100 MG in Sodium Chloride 0.9% 100 ML IV SCH (13:29)
[2021-01-14] MEDS: Enoxaparin 40 MG/0.4 ML Syringe SUBCUT SCH (13:29)
[2021-01-14] MEDS: cefTRIAXone 2 GM in Sodium Chloride 0.9% 50 ML IV SCH (14:23)
[2021-01-15] MEDS: Doxycycline 100 MG in Sodium Chloride 0.9% 100 ML IV SCH ×2 (02:23→16:46)
[2021-01-15] MEDS: Azelastine Nasal Soln 30 ML Spray Bottle NAS SCH ×2 (08:12→21:02)
--- NOTE | 2021-01-15 12:04 | PCM.PN ---
- General Info Date of Service: 01/15/21 Subjective Update: No acute events overnight. Respiratory status has been stable. Still on 15 L of oxygen. She reports that she feels less short of breath today. No fevers. Inflammatory markers are improving. Anxious to get home. Tolerating diet. Functional Status: Reports: Pain Controlled, Tolerating Diet - Patient Data Vitals - Most Recent: Last Vital Signs Temp 35.9 C L 01/15/21 09:59 Pulse 91 01/15/21 09:59 Resp 18 01/15/21 09:59 BP 110/76 01/15/21 09:59 Pulse Ox 95 01/15/21 09:59 Weight - Most Recent: 127.006 kg I&O - Last 24 Hours: Intake & Output 01/14/21 01/15/21 01/15/21 23:59 06:59 14:59 Intake Total Balance Lab Results Last 24 Hours: Laboratory Results - last 24 hr 01/15/21 01/15/21 Range/Units 04:15 04:15 D-Dimer, Quantitative 1846.33 H (0.0-500.0) ng/mL Sodium 142 (140-148) mmol/L Potassium 3.8 (3.6-5.2) mmol/L Chloride 104 (100-108) mmol/L Carbon Dioxide 29 (21-32) mmol/L Anion Gap 9.1 (5.0-14.0) mmol/L BUN 17 (7-18) mg/dL Creatinine 0.6 (0.6-1.0) mg/dL Est Cr Clr Drug Dosing 121.96 mL/min Estimated GFR (MDRD) > 60 (>60) Glucose 95 (74-106) mg/dL Calcium 8.5 (8.5-10.1) mg/dL C-Reactive Protein 2.96 H (0.0-0.3) mg/dL Med Orders - Current: Current Medications Acetaminophen (Acetaminophen Soln 650 Mg/20.3 Ml Ud Cup) 650 mg PO Q4H PRN PRN Reason: Pain Last Admin: 01/11/21 20:49 Dose: 650 mg Documented by: Azelastine HCl (Azelastine Nasal Soln 30 Ml [place] Bottle) 0 ml BENNY BID OMAYRA Last Admin: 01/15/21 08:12 Dose: Not Given Documented by: Benzonatate (Benzonatate 100 Mg Cap) 100 mg PO TID PRN PRN Reason: Cough Last Admin: 01/11/21 22:08 Dose: 100 mg Documented by: Dexamethasone (Dexamethasone 4 Mg/Ml Sdv) 6 mg IVPUSH Q24H [facility] Stop: 01/20/21 13:01 Last Admin: 01/14/21 13:29 Dose: 6 mg Documented by: Enoxaparin Sodium (Enoxaparin 40 Mg/0.4 Ml Syringe) 40 mg SUBCUT Q24H [facility] Last Admin: 01/14/21 13:29 Dose: 40 mg Documented by: Guaifenesin/Dextromethorphan (Guaifenesin/Dextromethorphan 100-10 Mg/5 Ml Soln 10 Ml Cup) 10 ml PO Q4H PRN PRN Reason: Cough Remdesivir 100 mg/ Sodium (Chloride) 100 mls @ 100 mls/hr IV Q24H [facility] Stop: 01/15/21 13:59 Last Admin: 01/14/21 13:29 Dose: 100 mls/hr Documented by: Doxycycline Hyclate 100 mg/ (Sodium Chloride) 100 mls @ 100 mls/hr IV Q12H [facility] Stop: 01/20/21 14:01 Last Admin: 01/15/21 02:23 Dose: 100 mls/hr Documented by: Ceftriaxone Sodium 2 gm/ (Sodium Chloride) 50 mls @ 100 mls/hr IV Q24H [facility] Stop: 01/19/21 13:29 Last Admin: 01/14/21 14:23 Dose: 100 mls/hr Documented by: Lorazepam (Lorazepam 2 Mg/Ml Sdv) 0.5 mg IVPUSH Q4H PRN PRN Reason: Nausea/Vomiting Magnesium Hydroxide (Magnesium Hydroxide 400 Mg/5 Ml Susp 30 Ml Cup) 30 ml PO Q12H PRN PRN Reason: Constipation Ondansetron HCl (Ondansetron 4 Mg/2 Ml Sdv) 4 mg IV Q6H PRN PRN Reason: Nausea/Vomiting Ondansetron HCl (Ondansetron 4 Mg Tab.Dis) 4 mg PO Q6H PRN PRN Reason: Nausea able to take PO Senna/Docusate Sodium (Docusate Sodium/Sennosides 50-8.6 Mg Tab) 1 tab PO BID PRN PRN Reason: Constipation Tramadol HCl (Tramadol 50 Mg Tab) 50 mg PO Q4H PRN PRN Reason: Pain Discontinued Medications Acetaminophen (Acetaminophen 325 Mg Tab) 650 mg PO Q4H PRN PRN Reason: Fever Greater Than 101 Last Admin: 01/11/21 13:53 Dose: 650 mg Documented by: Acetaminophen (Acetaminophen 325 Mg Tab) 650 mg PO Q4H PRN PRN Reason: Pain (Mild 1-3)/fever Benzonatate (Benzonatate 100 Mg Cap) 200 mg PO ONETIME ONE Stop: 01/11/21 12:47 Last Admin: 01/11/21 13:53 Dose: 200 mg Documented by: Cyanocobalamin (Cyanocobalamin (Vitamin B12) 1,000 Mcg Tab) 1,000 mcg SL DAILY OMAY[facility] Dexamethasone (Dexamethasone 4 Mg/Ml Sdv) 6 mg IVPUSH DAILY [facility] Stop: 01/20/21 09:01 Last Admin: 01/11/21 13:58 Dose: 6 mg Documented by: Enoxaparin Sodium (Enoxaparin 40 Mg/0.4 Ml Syringe) 40 mg SUBCUT ONETIME ONE Stop: 01/11/21 12:53 Last Admin: 01/11/21 14:32 Dose: 40 mg Documented by: Furosemide (Furosemide 20 Mg/2 Ml Vial) 20 mg IVPUSH NOW ONE Stop: 01/11/21 16:16 Last Admin: 01/11/21 17:03 Dose: 20 mg Documented by: Furosemide (Furosemide 20 Mg/2 Ml Vial) 20 mg IVPUSH ONETIME ONE Stop: 01/12/21 09:01 Last Admin: 01/12/21 08:32 Dose: 20 mg Documented by: Furosemide (Furosemide 20 Mg/2 Ml Vial) 20 mg IVPUSH ONETIME ONE Stop: 01/13/21 08:14 Last Admin: 01/13/21 11:44 Dose: 20 mg Documented by: Remdesivir 200 mg/ Sodium (Chloride) 250 mls @ 250 mls/hr IV ONETIME ONE Stop: 01/11/21 12:46 Last Admin: 01/11/21 14:29 Dose: 250 mls/hr Documented by: Multivitamins/Minerals (Multivitamins With Iron/Calcium/Folic Acid/Minerals Tab) 1 tab PO DAILY OMAYRA Vitamin B Complex (Vitamin B Complex Tab) 1 each PO DAILY OMAYRA - Exam Quality Assessment: Supplemental Oxygen General: Alert, Oriented, Cooperative, No Acute Distress Lungs: Normal Respiratory Effort GI/Abdominal Exam: Soft, No Distention Extremities: No Pedal Edema Psy/Mental Status: Alert, Normal Affect - Patient Data Lab Results Last 24 hrs: Laboratory Results - last 24 hr 01/15/21 01/15/21 Range/Units 04:15 04:15 D-Dimer, Quantitative 1846.33 H (0.0-500.0) ng/mL Sodium 142 (140-148) mmol/L Potassium 3.8 (3.6-5.2) mmol/L Chloride 104 (100-108) mmol/L Carbon Dioxide 29 (21-32) mmol/L Anion Gap 9.1 (5.0-14.0) mmol/L BUN 17 (7-18) mg/dL Creatinine 0.6 (0.6-1.0) mg/dL Est Cr Clr Drug Dosing 121.96 mL/min Estimated GFR (MDRD) > 60 (>60) Glucose 95 (74-106) mg/dL Calcium 8.5 (8.5-10.1) mg/dL C-Reactive Protein 2.96 H (0.0-0.3) mg/dL Result Diagrams: 01/14/21 04:15 01/15/21 04:15 Sepsis Event Note - Evaluation Sepsis Screening Result: No Definite Risk - Focused Exam Vital Signs: Vital Signs Temp Pulse Resp BP Pulse Ox 01/15/21 09:59 35.9 C L 91 18 110/76 95 01/15/21 07:19 96 01/15/21 07:00 35.4 C L 72 18 107/61 96 01/15/21 02:24 35.5 C L 73 18 110/60 95 01/15/21 01:00 [employer] 91 L 01/15/21 01:13 CDT 94 L - Problem List & Annotations (1) COVID-19 SNOMED Code(s): 661074348 Code(s): U07.1 - COVID-19 Status: Acute Current Visit: Yes (2) Acute respiratory failure due to COVID-19 SNOMED Code(s): 618103175 Code(s): U07.1 - COVID-19; J96.00 - ACUTE RESPIRATORY FAILURE, UNSP W HYPOXIA OR HYPERCAPNIA Status: Acute Current Visit: Yes (3) Status post gastric bypass for obesity SNOMED Code(s): 670626139, 453293233, 625184686, 867490744 Code(s): Z98.84 - BARIATRIC SURGERY STATUS Status: Chronic Current Visit: No (4) Morbid obesity with BMI of 40.0-44.9, adult SNOMED Code(s): 313829564, 82176046275215 Code(s): E66.01 - MORBID (SEVERE) OBESITY DUE TO EXCESS CALORIES; Z68.41 - BODY MASS INDEX [BMI] 40.0-44.9, ADULT Status: Chronic Current Visit: No - Problem List Review Problem List Initiated/Reviewed/Updated: Yes - My Orders Last 24 Hours: My Active Orders 01/15/21 12:03 Furosemide [Lasix] 20 mg IVPUSH NOW ONE - Plan Plan:: ASSESSMENT AND PLAN - COVID-19 pneumonia-complicated by acute respiratory failure with hypoxia. Symptom onset of 01/07 and positive test on 01/11. Supplemental oxygen requirements stable but remains high at 15 L. CRP has continued to improve. Tolerating treatments and seems to be slowly getting better. -Dexamethasone 6 mg daily (day 5) -Remdesivir x5 days -Enoxaparin every 24 hours -Empiric doxycycline and ceftriaxone (3 of 7) -Consider baricitinib if respiratory status declines further -Repeat CRP and D-dimer every 2 days -Supplement oxygen, wean as able -Isolation precautions Morbid obesity with BMI greater than 40-status post bariatric surgery on 01/06. Pain well controlled and doing well from the standpoint. -Symptomatic management of pain -Surgical follow-up per Dr. Johnson Maintenance issues - -DVT prophylaxis-enoxaparin -GI prophylaxis-not indicated -Nutrition-step 2 diet Disposition -I anticipate discharge home after the hospital stay Amador Thornton M.D.
[2021-01-15] MEDS ORDERED: Furosemide 20 MG/2 ML VIAL IVPUSH ONE (12:30)
--- NOTE | 2021-01-15 13:16 | PN ---
DATE OF SERVICE: 01/15/2021 The patient continues to gradually improve from oxygenation standpoint over the last 24 hours. Otherwise, from the gastric bypass point, she appears to be doing fairly well and we will plan to get the stitches out tomorrow. Otherwise, continue the step-2 diet. Tera Johnson MD Job #: [id number]
[2021-01-15] MEDS: cefTRIAXone 2 GM in Sodium Chloride 0.9% 50 ML IV SCH (14:01)
[2021-01-15] MEDS: Enoxaparin 40 MG/0.4 ML Syringe SUBCUT SCH (14:10)
[2021-01-15] MEDS: REMDESIVIR 100 MG in Sodium Chloride 0.9% 100 ML IV SCH (14:54)
[2021-01-15] MEDS: Dexamethasone 4 MG/ML SDV IVPUSH SCH (15:09)
[2021-01-16] MEDS: Doxycycline 100 MG in Sodium Chloride 0.9% 100 ML IV SCH ×2 (02:09→14:35)
--- NOTE | 2021-01-16 08:34 | PN ---
DATE OF SERVICE: 01/16/2021 SUBJECTIVE: Talya has COVID as well as had gastric bypass surgery on 01/06/2021. From oxygen standpoint of view, she is on 92 pulse oximetry on 7 L high-flow. Oral intake, she states has been adequate, 360 recorded. Urine output independent x3, and she has had two bowel movements. REVIEW OF SYSTEMS: Remainder of review of systems negative for any pertinent positives or negatives. OBJECTIVE: GENERAL: Talya is a 45-year-old female. She is lying in bed on her left side. O2 is on at 7 L. VITAL SIGNS: TPR is 96.4, 76, 18. Blood pressure 107/65. Color flushed. HEENT: Negative. HEART: Regular rate and rhythm. LUNGS: Rales throughout. ABDOMEN: Sutures intact. Incisions are well healed. EXTREMITIES: Without peripheral edema. ASSESSMENT: 1. COVID-19. 2. Acute respiratory failure due to COVID. 3. 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 PLAN: 1. Continue step 2 gastric bypass diet with no cereal. Patient will be discharged on this even to prevent any complications when she is discharged. 2. Remove sutures. Apply benzoin and Steri-Strips. 3. We will evaluate p.r.n. or in a.m. Dixie Landa PA-C /[id number]
[2021-01-16] MEDS: Azelastine Nasal Soln 30 ML Spray Bottle NAS SCH ×2 (10:45→20:09)
--- NOTE | 2021-01-16 14:20 | PCM.PN ---
- General Info Date of Service: 01/16/21 Subjective Update: Ms. Mckay has been stable since yesterday and shown further improvement in respiratory status. She is now down to 4 L of oxygen via high flow nasal cannula. She feels stronger and does feel that her appetite has improved as well. Subjectively less short of breath, no significant cough. Functional Status: Reports: Tolerating Diet, Ambulating, Urinating - Review of Systems General: Reports: Weakness, Fatigue. Denies: Fever, Chills Pulmonary: Reports: Shortness of Breath. Denies: Pleuritic Chest Pain, Cough, Sputum, Hemoptysis, Wheezing Cardiovascular: Reports: Dyspnea on Exertion. Denies: Chest Pain, Palpitations, Orthopnea, PND, Edema, Lightheadedness Gastrointestinal: Reports: No Symptoms Genitourinary: Reports: No Symptoms - Patient Data Vitals - Most Recent: Last Vital Signs Temp 97 F 01/16/21 11:20 Pulse 79 01/16/21 11:20 Resp 20 01/16/21 11:20 BP 99/65 01/16/21 11:20 Pulse Ox 96 01/16/21 13:49 Weight - Most Recent: 280 lb I&O - Last 24 Hours: Intake & Output 01/15/21 01/16/21 01/16/21 22:59 06:59 14:59 Intake Total 370 340 360 Balance 370 340 360 Med Orders - Current: Current Medications Acetaminophen (Acetaminophen Soln 650 Mg/20.3 Ml Ud Cup) 650 mg PO Q4H PRN PRN Reason: Pain Last Admin: 01/11/21 20:49 Dose: 650 mg Documented by: Azelastine HCl (Azelastine Nasal Soln 30 Ml [place] Bottle) 0 ml BENNY BID [facility] Last Admin: 01/16/21 10:45 Dose: Not Given Documented by: Benzonatate (Benzonatate 100 Mg Cap) 100 mg PO TID PRN PRN Reason: Cough Last Admin: 01/11/21 22:08 Dose: 100 mg Documented by: Dexamethasone (Dexamethasone 4 Mg/Ml Sdv) 6 mg IVPUSH Q24H [facility] Stop: 01/20/21 13:01 Last Admin: 01/15/21 15:09 Dose: 6 mg Documented by: Enoxaparin Sodium (Enoxaparin 40 Mg/0.4 Ml Syringe) 40 mg SUBCUT Q24H [facility] Last Admin: 01/15/21 14:10 Dose: 40 mg Documented by: Guaifenesin/Dextromethorphan (Guaifenesin/Dextromethorphan 100-10 Mg/5 Ml Soln 10 Ml Cup) 10 ml PO Q4H PRN PRN Reason: Cough Doxycycline Hyclate 100 mg/ (Sodium Chloride) 100 mls @ 100 mls/hr IV Q12H [facility] Stop: 01/20/21 14:01 Last Admin: 01/16/21 02:09 Dose: 100 mls/hr Documented by: Ceftriaxone Sodium 2 gm/ (Sodium Chloride) 50 mls @ 100 mls/hr IV Q24H [facility] Stop: 01/19/21 13:29 Last Admin: 01/15/21 14:01 Dose: 100 mls/hr Documented by: Lorazepam (Lorazepam 2 Mg/Ml Sdv) 0.5 mg IVPUSH Q4H PRN PRN Reason: Nausea/Vomiting Magnesium Hydroxide (Magnesium Hydroxide 400 Mg/5 Ml Susp 30 Ml Cup) 30 ml PO Q12H PRN PRN Reason: Constipation Ondansetron HCl (Ondansetron 4 Mg/2 Ml Sdv) 4 mg IV Q6H PRN PRN Reason: Nausea/Vomiting Ondansetron HCl (Ondansetron 4 Mg Tab.Dis) 4 mg PO Q6H PRN PRN Reason: Nausea able to take PO Senna/Docusate Sodium (Docusate Sodium/Sennosides 50-8.6 Mg Tab) 1 tab PO BID PRN PRN Reason: Constipation Tramadol HCl (Tramadol 50 Mg Tab) 50 mg PO Q4H PRN PRN Reason: Pain Discontinued Medications Acetaminophen (Acetaminophen 325 Mg Tab) 650 mg PO Q4H PRN PRN Reason: Fever Greater Than 101 Last Admin: 01/11/21 13:53 Dose: 650 mg Documented by: Acetaminophen (Acetaminophen 325 Mg Tab) 650 mg PO Q4H PRN PRN Reason: Pain (Mild 1-3)/fever Benzonatate (Benzonatate 100 Mg Cap) 200 mg PO ONETIME ONE Stop: 01/11/21 12:47 Last Admin: 01/11/21 13:53 Dose: 200 mg Documented by: Cyanocobalamin (Cyanocobalamin (Vitamin B12) 1,000 Mcg Tab) 1,000 mcg SL DAILY [facility] Dexamethasone (Dexamethasone 4 Mg/Ml Sdv) 6 mg IVPUSH DAILY [facility] Stop: 01/20/21 09:01 Last Admin: 01/11/21 13:58 Dose: 6 mg Documented by: Enoxaparin Sodium (Enoxaparin 40 Mg/0.4 Ml Syringe) 40 mg SUBCUT ONETIME ONE Stop: 01/11/21 12:53 Last Admin: 01/11/21 14:32 Dose: 40 mg Documented by: Furosemide (Furosemide 20 Mg/2 Ml Vial) 20 mg IVPUSH NOW ONE Stop: 01/11/21 16:16 Last Admin: 01/11/21 17:03 Dose: 20 mg Documented by: Furosemide (Furosemide 20 Mg/2 Ml Vial) 20 mg IVPUSH ONETIME ONE Stop: 01/12/21 09:01 Last Admin: 01/12/21 08:32 Dose: 20 mg Documented by: Furosemide (Furosemide 20 Mg/2 Ml Vial) 20 mg IVPUSH ONETIME ONE Stop: 01/13/21 08:14 Last Admin: 01/13/21 11:44 Dose: 20 mg Documented by: Furosemide (Furosemide 20 Mg/2 Ml Vial) 20 mg IVPUSH NOW ONE Stop: 01/15/21 12:31 Last Admin: 01/15/21 14:59 Dose: 20 mg Documented by: Remdesivir 200 mg/ Sodium (Chloride) 250 mls @ 250 mls/hr IV ONETIME ONE Stop: 01/11/21 12:46 Last Admin: 01/11/21 14:29 Dose: 250 mls/hr Documented by: Remdesivir 100 mg/ Sodium (Chloride) 100 mls @ 100 mls/hr IV Q24H [facility] Stop: 01/15/21 13:59 Last Admin: 01/15/21 14:54 Dose: 100 mls/hr Documented by: Multivitamins/Minerals (Multivitamins With Iron/Calcium/Folic Acid/Minerals Tab) 1 tab PO DAILY [facility] Vitamin B Complex (Vitamin B Complex Tab) 1 each PO DAILY [facility] - Exam Quality Assessment: Supplemental Oxygen, DVT Prophylaxis General: Alert, Oriented, Cooperative, Mild Distress Lungs: Clear to Auscultation, Normal Respiratory Effort, Decreased Breath Sounds Cardiovascular: Regular Rate, Regular Rhythm, No Murmurs GI/Abdominal Exam: Soft, Non-Tender, No Organomegaly, No Distention Extremities: Non-Tender, No Pedal Edema - Patient Data Result Diagrams: 01/14/21 04:15 01/15/21 04:15 Sepsis Event Note - Evaluation Sepsis Screening Result: No Definite Risk - Focused Exam Vital Signs: Vital Signs Temp Pulse Resp BP Pulse Ox 01/16/21 13:49 96 01/16/21 12:00 96 01/16/21 11:20 97 F 79 20 99/65 98 01/16/21 07:51 98.3 F 20 107/74 100 01/16/21 07:20 100 - Problem List Review Problem List Initiated/Reviewed/Updated: Yes - My Orders Last 24 Hours: My Active Orders 01/17/21 05:00 COMPREHENSIVE METABOLIC PN,CMP [CHEM] Timed 01/17/21 05:11 CRP [C-REACTIVE PROTEIN] [CHEM] AM D Dimer [D-DIMER QUANTITATIVE] [COAG] AM - Plan Plan:: ASSESSMENT AND PLAN - COVID-19 pneumonia-complicated by acute respiratory failure with hypoxia. Symptom onset of 01/07 and positive test on 01/11. Oxygenation has improved over the past few days currently on 4 L/min -Dexamethasone 6 mg daily (day 6) -Remdesivir x5 days -Enoxaparin every 24 hours -Empiric doxycycline and ceftriaxone (4 of 7) -Consider baricitinib if respiratory status declines further -Repeat CRP and D-dimer every 2 days -Supplement oxygen, wean as able -Isolation precautions Morbid obesity with BMI greater than 40-status post bariatric surgery on 01/06. Pain well controlled and doing well from the standpoint. -Symptomatic management of pain -Surgical follow-up per Dr. Johnson Maintenance issues - -DVT prophylaxis-enoxaparin -GI prophylaxis-not indicated -Nutrition-step 2 diet Disposition -I anticipate discharge home after the hospital stay
[2021-01-16] MEDS: cefTRIAXone 2 GM in Sodium Chloride 0.9% 50 ML IV SCH (14:33)
[2021-01-16] MEDS: Enoxaparin 40 MG/0.4 ML Syringe SUBCUT SCH (14:33)
[2021-01-16] MEDS: Dexamethasone 4 MG/ML SDV IVPUSH SCH (14:33)
[2021-01-17] MEDS: Doxycycline 100 MG in Sodium Chloride 0.9% 100 ML IV SCH (01:58)
--- NOTE | 2021-01-17 08:25 | PN ---
DATE OF SERVICE: 01/17/2021 SUBJECTIVE: Talya reports her breathing is better. She does voice concern that she is hungry and all she gets is step 2 bariatric diet foods. Sutures were removed yesterday. She denies any surgical pain. Oral intake 900. Urine output 1100. REVIEW OF SYSTEMS: HEENT: Negative. NECK: Supple. HEART AND LUNGS: Denies any chest pain. On breathing, she states it is getting better. She is on 4 L of high flow nasal cannula and her O2 by pulse oximetry is 93%. EXTREMITIES: Negative. SKIN: Without rash. PSYCHIATRIC: Negative. NEURO: Negative. Remainder of review of systems negative for any pertinent positives and negatives. OBJECTIVE: GENERAL: Talya is a 45-year-old female. Color is flushed. VITAL SIGNS: TPR 95.8, 78, 16, blood pressure 117/73. HEENT: Negative. NECK: Supple. HEART: Regular rate and rhythm. LUNGS: Better air exchange. There are rales bilaterally. O2 is on. ABDOMEN: Steri-Strips in place. EXTREMITIES: Without peripheral edema. ASSESSMENT: 1. Coronavirus disease 2019. 2. Acute respiratory failure due to coronavirus disease 2019. 3. 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 PLAN: To continue step 2 diet without cereal. Encouragement given that even if she was at home that she would continue on the step 2 diet without cereal normally until 01/21/2021, but due to COVID and decreased immune system, Dr. Johnson would like her on the step 2 without cereal diet until 01/28/2021. Encouraged that if she feels hungry to ask for more protein drinks, yogurt, creamed soups, and to continue to increase water intake. We will evaluate p.r.n. or in a.m. Dixie Landa PA-C /[id number]
[2021-01-17] MEDS: Azelastine Nasal Soln 30 ML Spray Bottle NAS SCH ×2 (09:48→20:04)
[2021-01-17] MEDS: Enoxaparin 40 MG/0.4 ML Syringe SUBCUT SCH (12:21)
--- NOTE | 2021-01-17 13:17 | PCM.PN ---
- General Info Date of Service: 01/17/21 Subjective Update: Ms. Mckay has experienced further improvement over the last 24 hours. She feels subjectively less short of breath, current oxygen requirement is down to 2-1/2 L via nasal cannula. Energy level seems to be slowly improving. Functional Status: Reports: Tolerating Diet, Ambulating, Urinating - Review of Systems General: Reports: Weakness, Fatigue. Denies: Fever, Chills Pulmonary: Reports: Shortness of Breath. Denies: Cough, Sputum, Hemoptysis, Wheezing Cardiovascular: Reports: Dyspnea on Exertion. Denies: Chest Pain, Palpitations, Orthopnea, PND, Edema, Lightheadedness Gastrointestinal: Reports: No Symptoms Genitourinary: Reports: No Symptoms - Patient Data Vitals - Most Recent: Last Vital Signs Temp 97.8 F 01/17/21 10:38 Pulse 91 01/17/21 10:38 Resp 18 01/17/21 10:38 BP 102/72 01/17/21 10:38 Pulse Ox 98 01/17/21 13:08 Weight - Most Recent: 280 lb I&O - Last 24 Hours: Intake & Output 01/16/21 01/17/21 01/17/21 22:59 06:59 14:59 Intake Total 340 300 120 Output Total 400 700 Balance -60 -400 120 Lab Results Last 24 Hours: Laboratory Results - last 24 hr 01/17/21 01/17/21 01/17/21 Range/Units 04:20 04:20 04:20 D-Dimer, Quantitative 1701.56 H (0.0-500.0) ng/mL Sodium 141 (140-148) mmol/L Potassium 4.1 (3.6-5.2) mmol/L Chloride 104 (100-108) mmol/L Carbon Dioxide 26 (21-32) mmol/L Anion Gap 10.7 (5.0-14.0) mmol/L BUN 14 (7-18) mg/dL Creatinine 0.6 (0.6-1.0) mg/dL Est Cr Clr Drug Dosing 121.96 mL/min Estimated GFR (MDRD) > 60 (>60) Glucose 100 (74-106) mg/dL Calcium 8.6 (8.5-10.1) mg/dL Total Bilirubin 0.5 D (0.2-1.0) mg/dL AST 23 (15-37) U/L ALT 31 (12-78) U/L Alkaline Phosphatase 62 (46-116) U/L C-Reactive Protein 3.18 H (0.0-0.3) mg/dL Total Protein 6.4 (6.4-8.2) g/dL Albumin 2.6 L (3.4-5.0) g/dL Globulin 3.8 H (2.3-3.5) g/dL Albumin/Globulin Ratio 0.7 L (1.2-2.2) Med Orders - Current: Current Medications Acetaminophen (Acetaminophen Soln 650 Mg/20.3 Ml Ud Cup) 650 mg PO Q4H PRN PRN Reason: Pain Last Admin: 01/11/21 20:49 Dose: 650 mg Documented by: Azelastine HCl (Azelastine Nasal Soln 30 Ml [place] Bottle) 0 ml BENNY BID [facility] Last Admin: 01/17/21 09:48 Dose: Not Given Documented by: Benzonatate (Benzonatate 100 Mg Cap) 100 mg PO TID PRN PRN Reason: Cough Last Admin: 01/11/21 22:08 Dose: 100 mg Documented by: Cefdinir (Cefdinir 300 Mg Cap) 300 mg PO BID [facility] Dexamethasone (Dexamethasone 2 Mg Tab) 6 mg PO DAILY [facility] Doxycycline Hyclate (Doxycycline 100 Mg Cap) 100 mg PO Q12H [facility] Enoxaparin Sodium (Enoxaparin 40 Mg/0.4 Ml Syringe) 40 mg SUBCUT Q24H [facility] Last Admin: 01/17/21 12:21 Dose: 40 mg Documented by: Guaifenesin/Dextromethorphan (Guaifenesin/Dextromethorphan 100-10 Mg/5 Ml Soln 10 Ml Cup) 10 ml PO Q4H PRN PRN Reason: Cough Lorazepam (Lorazepam 2 Mg/Ml Sdv) 0.5 mg IVPUSH Q4H PRN PRN Reason: Nausea/Vomiting Magnesium Hydroxide (Magnesium Hydroxide 400 Mg/5 Ml Susp 30 Ml Cup) 30 ml PO Q12H PRN PRN Reason: Constipation Ondansetron HCl (Ondansetron 4 Mg/2 Ml Sdv) 4 mg IV Q6H PRN PRN Reason: Nausea/Vomiting Ondansetron HCl (Ondansetron 4 Mg Tab.Dis) 4 mg PO Q6H PRN PRN Reason: Nausea able to take PO Senna/Docusate Sodium (Docusate Sodium/Sennosides 50-8.6 Mg Tab) 1 tab PO BID PRN PRN Reason: Constipation Tramadol HCl (Tramadol 50 Mg Tab) 50 mg PO Q4H PRN PRN Reason: Pain Discontinued Medications Acetaminophen (Acetaminophen 325 Mg Tab) 650 mg PO Q4H PRN PRN Reason: Fever Greater Than 101 Last Admin: 01/11/21 13:53 Dose: 650 mg Documented by: Acetaminophen (Acetaminophen 325 Mg Tab) 650 mg PO Q4H PRN PRN Reason: Pain (Mild 1-3)/fever Benzonatate (Benzonatate 100 Mg Cap) 200 mg PO ONETIME ONE Stop: 01/11/21 12:47 Last Admin: 01/11/21 13:53 Dose: 200 mg Documented by: Cyanocobalamin (Cyanocobalamin (Vitamin B12) 1,000 Mcg Tab) 1,000 mcg SL DAILY [facility] Dexamethasone (Dexamethasone 4 Mg/Ml Sdv) 6 mg IVPUSH DAILY [facility] Stop: 01/20/21 09:01 Last Admin: 01/11/21 13:58 Dose: 6 mg Documented by: Dexamethasone (Dexamethasone 4 Mg/Ml Sdv) 6 mg IVPUSH Q24H [facility] Stop: 01/20/21 13:01 Last Admin: 01/16/21 14:33 Dose: 6 mg Documented by: Enoxaparin Sodium (Enoxaparin 40 Mg/0.4 Ml Syringe) 40 mg SUBCUT ONETIME ONE Stop: 01/11/21 12:53 Last Admin: 01/11/21 14:32 Dose: 40 mg Documented by: Furosemide (Furosemide 20 Mg/2 Ml Vial) 20 mg IVPUSH NOW ONE Stop: 01/11/21 16:16 Last Admin: 01/11/21 17:03 Dose: 20 mg Documented by: Furosemide (Furosemide 20 Mg/2 Ml Vial) 20 mg IVPUSH ONETIME ONE Stop: 01/12/21 09:01 Last Admin: 01/12/21 08:32 Dose: 20 mg Documented by: Furosemide (Furosemide 20 Mg/2 Ml Vial) 20 mg IVPUSH ONETIME ONE Stop: 01/13/21 08:14 Last Admin: 01/13/21 11:44 Dose: 20 mg Documented by: Furosemide (Furosemide 20 Mg/2 Ml Vial) 20 mg IVPUSH NOW ONE Stop: 01/15/21 12:31 Last Admin: 01/15/21 14:59 Dose: 20 mg Documented by: Remdesivir 200 mg/ Sodium (Chloride) 250 mls @ 250 mls/hr IV ONETIME ONE Stop: 01/11/21 12:46 Last Admin: 01/11/21 14:29 Dose: 250 mls/hr Documented by: Remdesivir 100 mg/ Sodium (Chloride) 100 mls @ 100 mls/hr IV Q24H [facility] Stop: 01/15/21 13:59 Last Admin: 01/15/21 14:54 Dose: 100 mls/hr Documented by: Doxycycline Hyclate 100 mg/ (Sodium Chloride) 100 mls @ 100 mls/hr IV Q12H [facility] Stop: 01/20/21 14:01 Last Admin: 01/17/21 01:58 Dose: 100 mls/hr Documented by: Ceftriaxone Sodium 2 gm/ (Sodium Chloride) 50 mls @ 100 mls/hr IV Q24H [facility] Stop: 01/19/21 13:29 Last Admin: 01/16/21 14:33 Dose: 100 mls/hr Documented by: Multivitamins/Minerals (Multivitamins With Iron/Calcium/Folic Acid/Minerals Tab) 1 tab PO DAILY [facility] Vitamin B Complex (Vitamin B Complex Tab) 1 each PO DAILY [facility] - Exam Quality Assessment: Supplemental Oxygen, DVT Prophylaxis General: Alert, Oriented, Cooperative, Mild Distress Lungs: Clear to Auscultation, Normal Respiratory Effort, Decreased Breath Sounds. No: Rales, Rhonchi, Wheezing Cardiovascular: Regular Rate, Regular Rhythm, No Murmurs GI/Abdominal Exam: Soft, Non-Tender, No Organomegaly, No Distention Extremities: Non-Tender, No Pedal Edema - Patient Data Lab Results Last 24 hrs: Laboratory Results - last 24 hr 01/17/21 01/17/21 01/17/21 Range/Units 04:20 04:20 04:20 D-Dimer, Quantitative 1701.56 H (0.0-500.0) ng/mL Sodium 141 (140-148) mmol/L Potassium 4.1 (3.6-5.2) mmol/L Chloride 104 (100-108) mmol/L Carbon Dioxide 26 (21-32) mmol/L Anion Gap 10.7 (5.0-14.0) mmol/L BUN 14 (7-18) mg/dL Creatinine 0.6 (0.6-1.0) mg/dL Est Cr Clr Drug Dosing 121.96 mL/min Estimated GFR (MDRD) > 60 (>60) Glucose 100 (74-106) mg/dL Calcium 8.6 (8.5-10.1) mg/dL Total Bilirubin 0.5 D (0.2-1.0) mg/dL AST 23 (15-37) U/L ALT 31 (12-78) U/L Alkaline Phosphatase 62 (46-116) U/L C-Reactive Protein 3.18 H (0.0-0.3) mg/dL Total Protein 6.4 (6.4-8.2) g/dL Albumin 2.6 L (3.4-5.0) g/dL Globulin 3.8 H (2.3-3.5) g/dL Albumin/Globulin Ratio 0.7 L (1.2-2.2) Result Diagrams: 01/14/21 04:15 01/17/21 04:20 Sepsis Event Note - Evaluation Sepsis Screening Result: No Definite Risk - Focused Exam Vital Signs: Vital Signs Temp Pulse Resp BP Pulse Ox 01/17/21 13:08 98 01/17/21 10:38 97.8 F 91 18 102/72 94 L 01/17/21 07:24 93 L 01/17/21 07:00 95.3 F L 79 16 113/68 01/17/21 02:57 95.8 F L 78 16 117/73 93 L - Problem List Review Problem List Initiated/Reviewed/Updated: Yes - My Orders Last 24 Hours: My Active Orders 01/17/21 13:15 Cefdinir [Omnicef] 300 mg PO BID Doxycycline [Vibramycin] 100 mg PO Q12H dexAMETHasone 6 mg PO DAILY - Plan Plan:: ASSESSMENT AND PLAN - COVID-19 pneumonia-complicated by acute respiratory failure with hypoxia. Symptom onset of 01/07 and positive test on 01/11. Oxygenation has improved over the past few days currently on 2.5 L/min. Current IV has gone bad, will switch to oral antibiotics and dexamethasone -Dexamethasone 6 mg p.o. daily (day 7) -Remdesivir x5 days -Enoxaparin every 24 hours -Discontinue doxycycline and ceftriaxone -Oral doxycycline and cefdinir, day 5 of 7 -Consider baricitinib if respiratory status declines further -Repeat CRP and D-dimer every 2 days -Supplement oxygen, wean as able -Isolation precautions Morbid obesity with BMI greater than 40-status post bariatric surgery on 01/06. Pain well controlled and doing well from the standpoint. -Symptomatic management of pain -Surgical follow-up per Dr. Johnson Maintenance issues - -DVT prophylaxis-enoxaparin -GI prophylaxis-not indicated -Nutrition-step 2 diet Disposition -I anticipate discharge home tomorrow on home O2
[2021-01-17] MEDS: Dexamethasone 2 MG Tab PO SCH (14:23)
[2021-01-17] MEDS: cefTRIAXone 2 GM in Sodium Chloride 0.9% 50 ML IV SCH (14:31)
[2021-01-17] MEDS: Dexamethasone 4 MG/ML SDV IVPUSH SCH (14:31)
[2021-01-17] MEDS ORDERED: Cefdinir 300 MG Cap PO SCH (16:00)
[2021-01-17] MEDS ORDERED: Doxycycline 100 MG Cap PO SCH (16:00)
[2021-01-18] MEDS ORDERED: Cefdinir 300 MG Cap PO SCH (07:30)
--- NOTE | 2021-01-18 08:07 | PN ---
DATE OF SERVICE: 01/18/2021 SUBJECTIVE: Talya states she is planning to go home with oxygen today. REVIEW OF SYSTEMS: Negative for any pertinent positives and negatives with the exception of continued shortness of breath, but it has improved. OBJECTIVE: GENERAL: Talya is a pleasant 45-year-old female. VITAL SIGNS: Height 5 feet 8 inches, weight is 280 pounds. HEENT: Negative. NECK: Supple. HEART: Regular rate and rhythm. LUNGS: Improving. ABDOMEN: Steri-Strips on. Incisions well healed. EXTREMITIES: Without peripheral edema. ASSESSMENT: 1. COVID-19. 2. Acute respiratory failure due to COVID-19. 3. 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 PLAN: Continue step 2 gastric bypass diet until next appointment in clinic. An appointment made to be seen by Dixie Landa PA-C, on 01/26/2021 at 10 a.m. The patient was informed that if she had any questions or concerns, to call the Surgery Department. Dixie Landa PA-C /[phone]
[2021-01-18] MEDS: Azelastine Nasal Soln 30 ML Spray Bottle NAS SCH (08:26)
[2021-01-18] MEDS: Dexamethasone 2 MG Tab PO SCH (08:26)
[2021-01-18] MEDS ORDERED: Doxycycline 100 MG Cap PO SCH (09:00)
--- NOTE | 2021-01-18 13:23 | PCM.DCSUM1 ---
Discharge Summary - Hospital Course Brief History: Ms. Mckay is a 45-year-old woman who was admitted through the emergency department with weakness, hypoxia, and shortness of breath secondary to COVID-19 infection - Discharge Data Discharge Date: 01/18/21 Discharge Disposition: Home, Self-Care 01 Condition: Fair - Referral to Home Health Primary Care Physician: Tera Johnson MD - Discharge Diagnosis/Problem(s) (1) Acute respiratory failure with hypoxia SNOMED Code(s): 27400271, 304229982 ICD Code: J96.01 - ACUTE RESPIRATORY FAILURE WITH HYPOXIA Status: Acute Current Visit: Yes (2) COVID-19 SNOMED Code(s): 895920977 ICD Code: U07.1 - COVID-19 Status: Acute Current Visit: Yes (3) Status post gastric bypass for obesity SNOMED Code(s): 158723845, 939173408, 244141635, 574434916 ICD Code: Z98.84 - BARIATRIC SURGERY STATUS Status: Chronic Current Visit: No - Patient Summary/Data Hospital Course: Ms. Mckay presented to the emergency room with progressive dyspnea. She reports having gastric bypass surgery on January 06. She had mild hypoxia noted during the hospital stay and mild dyspnea but felt decent at the time of discharge 2 days ago. Since that time she has developed sinus congestion, cough which is dry as well as progressive dyspnea. She was quite short of breath today prompting her to come to the emergency room for evaluati on. She is not aware of any fevers or chills. No loss of taste or smell. No nausea or diarrhea. She is feeling better now that she has been started on supplemental oxygen. Work-up in the emergency room revealed elevated D-dimer, significantly elevated CRP as well as Covid positive. She has hypoxic and requiring supplemental oxygen. She has received dexamethasone, remdesivir and enoxaparin. She will be admitted for further management. On admission IV fluids were limited, dexamethasone, remdesivir, and enoxaparin were all continued. Because of recent hospitalization she was started on IV antibiotic therapy as well to cover for possible bacterial component to her infection. Over the first few days of hospitalization she did require increasing levels of supplemental oxygen. This started to improve a few days prior to discharge. At the time of discharge she is on 3 L of oxygen via nasal cannula and requested that she be discharged home. She did qualify for home oxygen, with an oxygen saturation of 83% on room air and while at rest. She will be discharged home with home oxygen at 3 L/min via nasal cannula. She will continue to follow with the bariatric diet is recommended by the bariatric surgery team. Activity will be as tolerated and she is instructed to self quarantine for an additional 9 days. Follow-up appointment should be scheduled with her primary care provider within 1 week. Follow-up with bariatric surgery team as recommended. She should return to the emergency department if she notes increased symptoms specifically fever or increase in shortness of breath. - Patient Instructions Diet: Drink 8-10+ Glasses/Day Diet, Other: Step 2 gastric bypass diet without cereal until next appointment. Activity: As Tolerated Other/Special Instructions: Discharged home with home oxygen 3 L/min via nasal cannula. Please schedule follow-up appointment with primary care provider within 1 week. - Discharge Plan *PRESCRIPTION DRUG MONITORING PROGRAM REVIEWED*: Not Applicable *COPY OF PRESCRIPTION DRUG MONITORING REPORT IN PATIENT NAZIA: Not Applicable Home Medications: Home Meds Azelastine [Astelin Nasal Soln] 1 spray BENNY BID 01/04/21 [History] Fluticasone Propionate [Flonase] 1 - 2 spray BENNY DAILY PRN 01/04/21 [History] Calcium Carb, Citrate/Vit D3 [Citracal + D ER] 1 tab PO DAILY #0 01/08/21 [Rx] Celecoxib [CeleBREX] 1 cap PO BID #0 01/08/21 [Rx] Cyanocobalamin (Vitamin B-12) [Vitamin B-12] 1,000 mcg SL DAILY #0 01/08/21 [Rx] Doxycycline Hyclate 100 mg PO DAILY PRN #0 01/08/21 [Rx] Ferrous Fumarate/Vitamin C [Vitron-C] 1 tab PO DAILY #0 01/08/21 [Rx] Magnesium Hydroxide [Milk of Magnesia] 30 ml PO DAILY PRN #2 ml 01/08/21 [Rx] Multivitamin [Multi-Day Vitamins] 1 tab PO DAILY #0 01/08/21 [Rx] Vitamin B Complex [B Complex] 1 tab PO DAILY #0 01/08/21 [Rx] traMADol [Ultram] 50 mg PO Q6H PRN #18 tablet 01/08/21 [Rx] Acetaminophen [Tylenol] 1,000 mg PO Q6H PRN 01/11/21 [History] Oxygen Therapy Mode: Nasal Cannula Oxygen Flow Rate (L/min): 3 Patient Handouts: COVID-19 - Discharge Summary/Plan Comment DC Time >30 min.: No Total # of Minutes for Discharge Time: 20 - Patient Data Vitals - Most Recent: Last Vital Signs Temp 96.7 F L 01/18/21 11:53 Pulse 76 01/18/21 11:53 Resp 20 01/18/21 11:53 BP 100/69 01/18/21 11:53 Pulse Ox 95 01/18/21 13:04 Weight - Most Recent: 280 lb I&O - Last 24 hours: Intake & Output 01/17/21 01/18/21 01/18/21 22:59 06:59 14:59 Intake Total 592 400 Balance 592 400 Lab Results - Last 24 hrs: Laboratory Results - last 24 hr 01/18/21 01/18/21 01/18/21 Range/Units 06:00 06:00 06:00 WBC 8.6 (4.5-11.0) K/uL RBC 5.02 (3.30-5.50) M/uL Hgb 14.3 (12.0-15.0) g/dL Hct 42.7 (36.0-48.0) % MCV 85 (80-98) fL MCH 29 (27-31) pg MCHC 34 (32-36) % Plt Count 418 H (150-400) K/uL Neut % (Auto) 79.8 H (36-66) % Lymph % (Auto) 13.2 L (24-44) % [place] % (Auto) 6.2 H (2-6) % Eos % (Auto) 0.2 L (2-4) % Baso % (Auto) 0.6 (0-1) % D-Dimer, Quantitative (0.0-500.0) ng/mL Sodium 141 (140-148) mmol/L Potassium 5.0 (3.6-5.2) mmol/L Chloride 103 (100-108) mmol/L Carbon Dioxide 27 (21-32) mmol/L Anion Gap 10.7 (5.0-14.0) mmol/L BUN 15 (7-18) mg/dL Creatinine 0.7 (0.6-1.0) mg/dL Est Cr Clr Drug Dosing 104.53 mL/min Estimated GFR (MDRD) > 60 (>60) Glucose 95 (74-106) mg/dL Calcium 8.8 (8.5-10.1) mg/dL Total Bilirubin 0.6 (0.2-1.0) mg/dL AST 20 (15-37) U/L ALT 32 (12-78) U/L Alkaline Phosphatase 66 (46-116) U/L C-Reactive Protein 2.69 H (0.0-0.3) mg/dL Total Protein 6.4 (6.4-8.2) g/dL Albumin 2.9 L (3.4-5.0) g/dL Globulin 3.5 (2.3-3.5) g/dL Albumin/Globulin Ratio 0.8 L (1.2-2.2) 01/18/21 Range/Units 06:15 WBC (4.5-11.0) K/uL RBC (3.30-5.50) M/uL Hgb (12.0-15.0) g/dL Hct (36.0-48.0) % MCV (80-98) fL MCH (27-31) pg MCHC (32-36) % Plt Count (150-400) K/uL Neut % (Auto) (36-66) % Lymph % (Auto) (24-44) % [place] % (Auto) (2-6) % Eos % (Auto) (2-4) % Baso % (Auto) (0-1) % D-Dimer, Quantitative 1472.11 H (0.0-500.0) ng/mL Sodium (140-148) mmol/L Potassium (3.6-5.2) mmol/L Chloride (100-108) mmol/L Carbon Dioxide (21-32) mmol/L Anion Gap (5.0-14.0) mmol/L BUN (7-18) mg/dL Creatinine (0.6-1.0) mg/dL Est Cr Clr Drug Dosing mL/min Estimated GFR (MDRD) (>60) Glucose (74-106) mg/dL Calcium (8.5-10.1) mg/dL Total Bilirubin (0.2-1.0) mg/dL AST (15-37) U/L ALT (12-78) U/L Alkaline Phosphatase (46-116) U/L C-Reactive Protein (0.0-0.3) mg/dL Total Protein (6.4-8.2) g/dL Albumin (3.4-5.0) g/dL Globulin (2.3-3.5) g/dL Albumin/Globulin Ratio (1.2-2.2) Med Orders - Current: Current Medications Acetaminophen (Acetaminophen Soln 650 Mg/20.3 Ml Ud Cup) 650 mg PO Q4H PRN PRN Reason: Pain Last Admin: 01/11/21 20:49 Dose: 650 mg Documented by: Azelastine HCl (Azelastine Nasal Soln 30 Ml [place] Bottle) 0 ml BENNY BID [facility] Last Admin: 01/18/21 08:26 Dose: Not Given Documented by: Benzonatate (Benzonatate 100 Mg Cap) 100 mg PO TID PRN PRN Reason: Cough Last Admin: 01/11/21 22:08 Dose: 100 mg Documented by: Cefdinir (Cefdinir 300 Mg Cap) 300 mg PO BIDAC [facility] Last Admin: 01/18/21 08:26 Dose: 300 mg Documented by: Dexamethasone (Dexamethasone 2 Mg Tab) 6 mg PO DAILY [facility] Last Admin: 01/18/21 08:26 Dose: 6 mg Documented by: Doxycycline Hyclate (Doxycycline 100 Mg Cap) 100 mg PO BID [facility] Last Admin: 01/18/21 08:26 Dose: 100 mg Documented by: Enoxaparin Sodium (Enoxaparin 40 Mg/0.4 Ml Syringe) 40 mg SUBCUT Q24H [facility] Last Admin: 01/17/21 12:21 Dose: 40 mg Documented by: Guaifenesin/Dextromethorphan (Guaifenesin/Dextromethorphan 100-10 Mg/5 Ml Soln 10 Ml Cup) 10 ml PO Q4H PRN PRN Reason: Cough Lorazepam (Lorazepam 2 Mg/Ml Sdv) 0.5 mg IVPUSH Q4H PRN PRN Reason: Nausea/Vomiting Magnesium Hydroxide (Magnesium Hydroxide 400 Mg/5 Ml Susp 30 Ml Cup) 30 ml PO Q12H PRN PRN Reason: Constipation Ondansetron HCl (Ondansetron 4 Mg/2 Ml Sdv) 4 mg IV Q6H PRN PRN Reason: Nausea/Vomiting Ondansetron HCl (Ondansetron 4 Mg Tab.Dis) 4 mg PO Q6H PRN PRN Reason: Nausea able to take PO Senna/Docusate Sodium (Docusate Sodium/Sennosides 50-8.6 Mg Tab) 1 tab PO BID PRN PRN Reason: Constipation Tramadol HCl (Tramadol 50 Mg Tab) 50 mg PO Q4H PRN PRN Reason: Pain Discontinued Medications Acetaminophen (Acetaminophen 325 Mg Tab) 650 mg PO Q4H PRN PRN Reason: Fever Greater Than 101 Last Admin: 01/11/21 13:53 Dose: 650 mg Documented by: Acetaminophen (Acetaminophen 325 Mg Tab) 650 mg PO Q4H PRN PRN Reason: Pain (Mild 1-3)/fever Benzonatate (Benzonatate 100 Mg Cap) 200 mg PO ONETIME ONE Stop: 01/11/21 12:47 Last Admin: 01/11/21 13:53 Dose: 200 mg Documented by: Cefdinir (Cefdinir 300 Mg Cap) 300 mg PO Q12H [facility] Last Admin: 01/17/21 16:12 Dose: 300 mg Documented by: Cyanocobalamin (Cyanocobalamin (Vitamin B12) 1,000 Mcg Tab) 1,000 mcg SL DAILY [facility] Dexamethasone (Dexamethasone 4 Mg/Ml Sdv) 6 mg IVPUSH DAILY [facility] Stop: 01/20/21 09:01 Last Admin: 01/11/21 13:58 Dose: 6 mg Documented by: Dexamethasone (Dexamethasone 4 Mg/Ml Sdv) 6 mg IVPUSH Q24H [facility] Stop: 01/20/21 13:01 Last Admin: 01/17/21 14:31 Dose: Not Given Documented by: Doxycycline Hyclate (Doxycycline 100 Mg Cap) 100 mg PO Q12H [facility] Last Admin: 01/17/21 16:12 Dose: 100 mg Documented by: Enoxaparin Sodium (Enoxaparin 40 Mg/0.4 Ml Syringe) 40 mg SUBCUT ONETIME ONE Stop: 01/11/21 12:53 Last Admin: 01/11/21 14:32 Dose: 40 mg Documented by: Furosemide (Furosemide 20 Mg/2 Ml Vial) 20 mg IVPUSH NOW ONE Stop: 01/11/21 16:16 Last Admin: 01/11/21 17:03 Dose: 20 mg Documented by: Furosemide (Furosemide 20 Mg/2 Ml Vial) 20 mg IVPUSH ONETIME ONE Stop: 01/12/21 09:01 Last Admin: 01/12/21 08:32 Dose: 20 mg Documented by: Furosemide (Furosemide 20 Mg/2 Ml Vial) 20 mg IVPUSH ONETIME ONE Stop: 01/13/21 08:14 Last Admin: 01/13/21 11:44 Dose: 20 mg Documented by: Furosemide (Furosemide 20 Mg/2 Ml Vial) 20 mg IVPUSH NOW ONE Stop: 01/15/21 12:31 Last Admin: 01/15/21 14:59 Dose: 20 mg Documented by: Remdesivir 200 mg/ Sodium (Chloride) 250 mls @ 250 mls/hr IV ONETIME ONE Stop: 01/11/21 12:46 Last Admin: 01/11/21 14:29 Dose: 250 mls/hr Documented by: Remdesivir 100 mg/ Sodium (Chloride) 100 mls @ 100 mls/hr IV Q24H [facility] Stop: 01/15/21 13:59 Last Admin: 01/15/21 14:54 Dose: 100 mls/hr Documented by: Doxycycline Hyclate 100 mg/ (Sodium Chloride) 100 mls @ 100 mls/hr IV Q12H [facility] Stop: 01/20/21 14:01 Last Admin: 01/17/21 01:58 Dose: 100 mls/hr Documented by: Ceftriaxone Sodium 2 gm/ (Sodium Chloride) 50 mls @ 100 mls/hr IV Q24H [facility] Stop: 01/19/21 13:29 Last Admin: 01/17/21 14:31 Dose: Not Given Documented by: Multivitamins/Minerals (Multivitamins With Iron/Calcium/Folic Acid/Minerals Tab) 1 tab PO DAILY [facility] Vitamin B Complex (Vitamin B Complex Tab) 1 each PO DAILY [facility] - Exam Quality Assessment: Reports: Supplemental Oxygen, DVT Prophylaxis General: Reports: Alert, Oriented, Cooperative, Mild Distress Lungs: Reports: Clear to Auscultation, Normal Respiratory Effort Cardiovascular: Reports: Regular Rate, Regular Rhythm, No Murmurs GI/Abdominal Exam: Soft, Non-Tender, No Organomegaly, No Distention Extremities: Non-Tender, No Pedal Edema
[2021-01-18] MEDS: Enoxaparin 40 MG/0.4 ML Syringe SUBCUT SCH (14:03)
== END 2021-01-18 15:30 | disposition home or self-care (01) | DRG 137 ==
LOC: JP.ED 10:32 → JP.2SS 15:08
PROVIDERS: ADMIT Internal Medicine; ATTEND Internal Medicine
PROC: 3E0DX3Z Introduction of Anti-inflammatory into Mouth and Pharynx, External Approach (ICD-10-PCS; principal; 2021-01-11)
PROC: XW033E5 Introduction of Remdesivir Anti-infective into Peripheral Vein, Percutaneous Approach, New Technology Group 5 (ICD-10-PCS; principal; 2021-01-11)
PROC: 3E0333Z Introduction of Anti-inflammatory into Peripheral Vein, Percutaneous Approach (ICD-10-PCS; principal; 2021-01-11)
PROC: 8E0ZXY6 Isolation (ICD-10-PCS; principal; 2021-01-11)
DX: U07.1 COVID-19 (principal); Z98.84 Bariatric surgery status; J96.01 Acute respiratory failure with hypoxia; J12.82 Pneumonia due to coronavirus disease 2019; J15.9 Unspecified bacterial pneumonia; E66.01 Morbid (severe) obesity due to excess calories; K21.9 Gastro-esophageal reflux disease without esophagitis; K44.9 Diaphragmatic hernia without obstruction or gangrene; Z86.19 Personal history of other infectious and parasitic diseases; Z68.41 Body mass index [BMI] 40.0-44.9, adult; Z88.0 Allergy status to penicillin; Z88.5 Allergy status to narcotic agent; Z88.8 Allergy status to other drugs, medicaments and biological substances; Z79.899 Other long term (current) drug therapy; Z90.49 Acquired absence of other specified parts of digestive tract; Z90.89 Acquired absence of other organs; Z90.710 Acquired absence of both cervix and uterus
CPT/HCPCS: 0241U; 36415; 71045; 71045-26; 80048; 80053; 80076; 83605; 84145; 85025; 85027; 85379; 86140; 94762; 96372; 96374; 99285-25; A9270-GY; J0696; J1100; J1650; J1940; J3490; J7050; J8540

== ENCOUNTER → 2021-02-10 | Day surgery (SDC) | payer BC ==
[~2021-02-10] MED LIST: Cyanocobalamin (Vitamin B12) 1,000 MCG/ML SDV IM ONE; Dexamethasone 4 MG/ML SDV ONE; Glycopyrrolate 0.2 MG/ML 2 ML SDV IVPUSH ONE; Lactated Ringers 1,000 ML IV ONE; MVI, Adult with Vitamin K 10 ML, Thiamine 200 MG, Zinc/Copper/Manganese/Selenium 1 ML i... IV ONE; Midazolam 1 MG/ML 2 ML SDV ONE; Ondansetron 4 MG/2 ML SDV IVPUSH ONE; Pantoprazole 40 MG Vial IVPUSH ONE; Propofol 200 MG/20 ML SDV ONE; Scopolamine 1.5 MG Transdermal Patch TRDERM SCH; fentaNYL 100 MCG/2 ML SDV ONE
--- NOTE | 2021-02-14 13:42 | OR ---
DATE OF PROCEDURE: 02/10/2021 SURGEON: Tera Johnson MD PREOPERATIVE DIAGNOSIS: Possible stricture at gastrojejunostomy. POSTOPERATIVE DIAGNOSIS: Edema and focal ulcer at the gastric pouch and gastrojejunostomy (without overt structure). OPERATIVE PROCEDURE: Upper gastrointestinal endoscopy with biopsies of gastric pouch for CLOtest. ANESTHESIA: IV sedation. INDICATIONS FOR PROCEDURE: This is a 45-year-old status post Lizeth-en-Y gastric bypass in this past December. Her postoperative course was complicated by development of COVID requiring hospitalization. She presented to the emergency room 2 days after discharge and had developed somewhat of a cough during the end of the primary hospitalization. She recovered from that, but then subsequently developed a DVT involving left calf, presently is on Eliquis. The plan is to proceed with upper GI endoscopy with biopsies and/or dilation as indicated. Potential risks including bleeding and perforation were discussed and the patient wishes to proceed. DETAILS OF PROCEDURE: The patient was taken to the operating room and placed in a left lateral decubitus position. IV sedation was administered after which the upper GI endoscope was passed orally through the length of the esophagus and passed through the gastric pouch and through the gastrojejunostomy roughly 20 cm into the Lizeth limb. Findings included a normal hypopharynx, larynx, upper esophageal sphincter, and esophageal body. At the EG junction, she was noted to have no significant inflammation, but when entered the pouch and area around the gastrojejunostomy, this was noted to be markedly edematous and reddened with a focal ulcer bridging the gastrojejunostomy. There was no overt stricture with the scope easily being passed through that area. At this point, biopsies were obtained from the area of gastric pouch, sent for CLOtest for H. pylori. Minimal bleeding from the biopsy site was seen and the procedure then concluded. The plan will be to give the patient Protonix 40 mg IV push in the PAR and then begin Protonix 40 mg daily. She will be instructed to restart her Eliquis this evening and follow up with [facility]anda will be in 2 to 3 weeks. Given the ulceration, the patient will remain at relatively high risk for development of a subsequent stricture and she is instructed to call over time should symptoms of the stricturing recur. Tera Johnson MD /[id number]
== END ==
LOC: JP.SDS 05:44
PROVIDERS: ATTEND Surgery
DX: K91.89 Other postprocedural complications and disorders of digestive system (principal); K25.9 Gastric ulcer, unspecified as acute or chronic, without hemorrhage or perforation; Z86.16 Personal history of COVID-19
CPT/HCPCS: 36415; 43239; 80053; 85027; 87081; A9270; C9113; J2250; J2405; J2704; J3411; J3420; J3490; J7120; J1100; J3010